=== PATIENT | female | born 1940 | race Caucasian/White ===

== ENCOUNTER 2019-10-06 16:00 | Emergency (ER) | payer MEDICARE, SELFPAY ==
--- NOTE | ~2019-10-06 | XR_ITS ---
EXAMINATION: XR chest 2V EXAM DATE: 10/06/2019 16:29 INDICATION: Generalized chest pain. Weakness. TECHNIQUE: Frontal and lateral projections of the chest obtained and reviewed. Comparison is made to prior examination from 09/08/2021. FINDINGS: Small amount of left basilar atelectasis or pneumonia, new finding compared to prior study. The lungs are otherwise clear. There are no pleural effusions. The cardiomediastinal silhouette is within normal limits. There is no pneumothorax suspected. The bones and soft tissues are unremarka ble. IMPRESSION: Subsegmental left basilar atelectasis or pneumonia. Reviewed, dictated and finalized at location A. END ANCHOR
--- NOTE | 2019-10-06 16:08 | ECG_ITS ---
Measurements Intervals [place] Rate: 79 P: [place]: 0 QRS: 57 QRSD: 93 T: 15 QT: 373 QTc: 428 Interpretive Statements ATRIAL FIBRILLATION DELAYED PRECORDIAL R/S TRANSITION BASELINE ARTIFACT- I, II, III, AVR, AVF ABNORMAL ECG Electronically Signed On 10-06-2019 16:20:58 [employer] by Kaushik Torres D.O.
[2019-10-06 16:10] VITALS: BP 137/85; PULSE 76; RESP 18; TEMP 37; O2SAT 96
[2019-10-06 16:40] LABS: Hematocrit 36.9 % (35.0-42.0); Hemoglobin 12.2 g/dL (11.7-13.8); Mean Corpuscular HGB Conc 33.1 g/dL (32.0-36.0); Mean Corpuscular Volume 90.9 fL (78.0-102.0); Mean Platelet Volume 9.4 fl (9.2-11.8); Platelet Count Result 281 K/mm3 (150-420); Red Blood Count 4.06 M/mm3 (4.20-5.40); Red Cell Distribution Width 13.4 % (11.6-14.4); White Blood Count 5.8 K/mm3 (4.8-10.8)
[2019-10-06 16:54] LABS: INR 1.1; Partial Thromboplastin Time 28.2 SEC (22.3-31.6); Prothrombin Time 11.2 Seconds (9.64-11.0)
[2019-10-06 16:59] LABS: Alanine Aminotransferase 24 U/L (14-59); Albumin Level 3.4 g/dL (3.4-5.0); Alkaline Phosphatase 52 U/L (46-116); Aspartate Amino Transferase 23 U/L (15-37); Bilirubin,Total 0.3 mg/dL (0.00-1.00); Blood Urea Nitrogen 21 mg/dL (7-18); Calcium 9.4 mg/dL (8.5-10.1); Carbon Dioxide 27 mmol/L (21-32); Chloride 102 mmol/L (98-108); Estimated Glomerular Filt Rate 40; Glucose 95 mg/dL (70-99); Osmolality Calculated 293 mOsm/kg (285-295); Sodium 140 mmol/L (136-145); Total Protein 7.8 g/dL (6.4-8.2)
[2019-10-06 17:00] LABS: Troponin I < 0.02 ng/mL (0.00-0.056)
[2019-10-06 17:18] LABS: Band Neutrophils Percent 0 % (0-6); Basophils Percent Manual 0 % (0-1); Eosinophils Percent Manual 0 % (1-6); Lymphocytes Absolute Manual 2.32 K/mm3 (1.1-4.5); Lymphocytes Percent Manual 40 % (18-44); Metamyelocytes Percent 0 %; Monocytes Absolute Manual 0.34 K/mm3 (0.1-0.90); Monocytes Percent Manual 6 % (3-9); Myelocytes Percent 0 %; Neutrophils Absolute Manual 3.13 K/mm3 (1.7-7.2); Neutrophils Percent Manual 54 % (46-73); Total Cells Counted 100
[2019-10-06] MEDS: SODIUM CHLORIDE 0.9% IV 1,000 ML 999 ML IV CONT (17:28)
[2019-10-06 17:50] LABS: Lactic Acid 1.6 mmol/L (0.4-2.0)
[2019-10-06 17:58] LABS: Add Urine Microscopic? NO; Appearance Urine Clear (Clear); Bilirubin Urine Negative (Negative); Blood Urine Negative (Negative); Color Urine Yellow (Yellow); Glucose Urine UA Negative (Negative); Ketones Urine Negative (Negative); Leukocyte Esterase Ur Negative (Negative); Nitrate Urine Negative (Negative); Protein Urine Negative (Negative); Urobilinogen Urine 0.2 mg/dL (0.2-1.0)
[2019-10-06 18:04] VITALS: BP 170/91; PULSE 81; RESP 18; O2SAT 98
--- NOTE | 2019-10-06 18:16 | ED.SOB ---
HPI - SOB/Dyspnea General Chief Complaint: Shortness of Breath/Dyspnea Stated Complaint: weakness, sent from [facility] Source: patient and family Mode of arrival: ambulatory Limitations: no limitations History of Present Illness HPI Narrative: 79-year-old female sent to the ER by her primary care physician because of fall she stated that she was having chest pain, during evaluation of the patient she denied any chest pain and was complaining of a cough and some rattling in her upper airway, other cough is nonproductive and currently on she recently finished a course of antibiotics for pneumonia approximately 2 weeks ago. Currently there is no fever chills no nausea vomiting no chest pain or chest tightness no shortness of breath no abdominal pain no diarrhea constipation. MD elicited complaint: cough Onset (ago): day(s) Context: recent illness Timing: intermittent Severity: mild Exacerbating factors: coughing Relieving factors: bronchodilators Related Data Home Medications Medication Instructions Recorded Confirmed albuterol sulfate [ProAir HFA] 2 puff INHALATION Q6H 10/06/19 10/06/19 alprazolam [Xanax] 0.25 mg PO HS PRN 10/06/19 10/06/19 amlodipine 2.5 mg PO DAILY 10/06/19 10/06/19 apixaban [Eliquis] 5 mg PO DAILY 10/06/19 10/06/19 aspirin [Aspir-81] 81 mg PO DAILY 10/06/19 10/06/19 levothyroxine [Synthroid] 100 mcg PO DAILY 10/06/19 10/06/19 losartan 100 mg PO DAILY 10/06/19 10/06/19 paroxetine HCl 30 mg PO QAM 10/06/19 10/06/19 pravastatin 20 mg PO DAILY 10/06/19 10/06/19 Allergies Allergy/AdvReac Type Severity Reaction Status Date / Time hydrocodone Allergy Unknown Verified 04/23/17 06:54 Influenza Virus Vaccines Allergy Unknown Itching Verified 04/23/17 06:54 meperidine Allergy Unknown Nausea and Verified 04/23/17 06:54 Vomiting naproxen Allergy Unknown Verified 07/24/14 09:43 Penicillins Allergy Unknown Verified 07/24/14 09:43 vancomycin Allergy Unknown Verified 07/24/14 09:43 NKFA Allergy Unknown Uncoded 02/21/03 13:44 NONSTEROIDAL Allergy Unknown Rash Uncoded 12/13/08 13:03 Review of Systems Review of Systems: All systems reviewed & are unremarkable except as noted in HPI and below PMFSH Past Medical History Medical History Afib HTN (hypertension) Hypothyroidism (acquired) Family History Family History Father Family history of malignant neoplasm Other Asthma Social History Social History Smoking status: Never smoker Alcohol intake: never Exam Const: General: no acute distress and alert Orientation/consciousness: patient oriented x3 HENMT: Head: normal to inspection Neck: Neck: normal visual inspection and no lymphadenopathy Chest: Chest palpation & inspection: normal inspection of the chest Resp: Effort & Inspection: normal respiratory effort Auscultation: clear to auscultation bilaterally Cardio: Rate: regular rate GI: GI Palp: Yes Soft to palpation : General: Yes no CVA tenderness Back/Spine/Pelvis: Back: no CVA tenderness Course Vital Signs Vital signs: Vital Signs Temperature 37.0 C 10/06/19 16:10 Pulse Rate 76 10/06/19 16:10 Respiratory Rate 18 10/06/19 16:10 Blood Pressure 137/85 10/06/19 16:10 Pulse Oximetry 96 10/06/19 16:10 Temperature 37.0 C 10/06/19 16:10 Pulse Rate 81 10/06/19 18:04 Respiratory Rate 18 10/06/19 18:04 Blood Pressure 170/91 H 10/06/19 18:04 Pulse Oximetry 98 10/06/19 18:04 MDM - SOB/Dyspnea Lab Data Attestation: I reviewed the patient's lab results. Result diagrams: 10/06/19 16:34 10/06/19 16:34 Labs: Lab Results 10/06/19 10/06/19 10/06/19 Range/Units 16:34 16:34 16:34 WBC 5.8 (4.8-10.8) K/mm3 RBC 4.06 L (4.20-5.40) M/mm3 Hgb 12.2 (11.7-13.8) g/dL Hct 36.9 (35.0-42.0)
[2019-10-06 18:29] VITALS: BP 158/93
[2019-10-06 18:48] LABS: Platelet Estimate Adequate (Adequate)
== END 2019-10-06 18:37 | disposition home or self-care (01) ==
PROVIDERS: Emergency Provider Emergency Medicine; PCP Internal Medicine
DX: J18.9 Pneumonia, unspecified organism (principal); I48.91 Unspecified atrial fibrillation; I10 Essential (primary) hypertension; E03.9 Hypothyroidism, unspecified
CPT/HCPCS: 36415; 71046; 80053; 81003; 83605; 84484; 85025; 85610; 85730; 93005; 96360; 99284; J7030

== ENCOUNTER 2019-10-19 12:14 | Outpatient (CLI) | payer MEDICARE, SELFPAY ==
--- NOTE | ~2019-10-19 | XR_ITS ---
EXAMINATION: XR chest 2V 10/19/2019 12:33 INDICATION: Follow-up pneumonia PROCEDURE: 2 view chest COMPARISON: 12/14/2018 FINDINGS: The lungs are clear. The cardiomediastinal silhouette is within normal limits. There are no pleural effusions. There is no pneumothorax suspected. IMPRESSION: 1: NO ACUTE CARDIOPULMONARY DISEASE. Reviewed, dictated and finalized at location A. [employer]
== END 2019-10-19 12:15 | disposition home or self-care (01) ==
PROVIDERS: PCP Internal Medicine; Visit Provider Internal Medicine
DX: J18.9 Pneumonia, unspecified organism (principal)
CPT/HCPCS: 71046

== ENCOUNTER 2019-11-13 16:52 | Emergency (ER) | payer MEDICARE, SELFPAY ==
[2019-11-13 17:00] VITALS: BP 153/90; PULSE 89; RESP 12; TEMP 36.9; O2SAT 97
--- NOTE | 2019-11-13 17:55 | ECG_ITS ---
Measurements Intervals [place] Rate: 83 P: MD: 0 QRS: 5 QRSD: 91 T: 12 QT: 384 QTc: 451 Interpretive Statements ATRIAL FIBRILLATION CONSIDER INFERIOR INFARCT, AGE INDETERMINATE BORDERLINE ST-T WAVE ABNORMALITY- INF/LAT LEADS BASELINE ARTIFACT- I, II, III, AVR, AVL,A VF ABNORMAL ECG Electronically Signed On 11-14-2019 7:36:21 CDT by Kaushik Torers D.O.
--- NOTE | 2019-11-13 17:58 | ED.DIZZY ---
HPI - Dizziness General Chief Complaint: Dizziness Stated Complaint: Dizziness Source: patient Mode of arrival: ambulatory Limitations: no limitations History of Present Illness HPI Narrative: Several hours before arriving in the E.D. Romana Kendall began experiencing spinning when she stood up from a her kitchen chair. She had an unsteady gait leaning towards her left. Her symptoms resolved immediately after sitting down. This recurred every time she stood. There were no symptoms assoc. with sitting or laying or sitting up after laying supine. She's concerned about a possible stroke. She states these are the same symptoms she had in November 2018 when she was dx. with a stroke. Symptoms lasted a day or two She denies tinnitus, change in hearing, ear pain, sweats, nausea, palpitations, chest pain, visual disturbances, speech problems, numbness or weakness. She has been complaint with taking her apixaban. . Related Data Home Medications Medication Instructions Recorded Confirmed alprazolam [Xanax] 0.25 mg PO HS PRN 10/06/19 11/13/19 amlodipine 2.5 mg PO DAILY 10/06/19 11/13/19 apixaban [Eliquis] 5 mg PO DAILY 10/06/19 11/13/19 aspirin [Aspir-81] 81 mg PO DAILY 10/06/19 11/13/19 levothyroxine [Synthroid] 100 mcg PO DAILY 10/06/19 11/13/19 losartan 100 mg PO DAILY 10/06/19 11/13/19 paroxetine HCl 30 mg PO QAM 10/06/19 11/13/19 pravastatin 20 mg PO DAILY 10/06/19 11/13/19 cholecalciferol (vitamin D3) 1,000 unit PO DAILY 11/13/19 11/13/19 mecobalamin (vitamin B12) 1,000 mcg PO DAILY 11/13/19 11/13/19 Allergies Allergy/AdvReac Type Severity Reaction Status Date / Time hydrocodone Allergy Unknown Rash Verified 11/13/19 17:26 Influenza Virus Vaccines Allergy Unknown Itching Verified 04/23/17 06:54 meperidine Allergy Unknown Nausea and Verified 04/23/17 06:54 Vomiting naproxen Allergy Unknown Rash Verified 11/13/19 17:26 Penicillins Allergy Unknown Rash Verified 11/13/19 17:26 vancomycin Allergy Unknown Rash Verified 11/13/19 17:26 Review of Systems Constitutional: Constitutional: Reports no additional constitutional complaints, Denies chills and Denies fever(s) Eyes: Eyes: Reports no additional eye complaints ENT: Denies dysphagia and Denies nasal congestion Cardiovascular: Cardiovascular: Denies rapid heart rate, Denies radiating jaw, neck or arm pain and Denies slow heart rate Respiratory: Respiratory: Denies dyspnea Gastrointestinal: Gastrointestinal: Denies abdominal pain, Denies diarrhea and Denies vomiting Genitourinary: Genitourinary: Denies dysuria Musculoskeletal: Musculoskeletal: Denies back pain and Denies arthralgias Integumentary/Breasts: Skin/Breast: Denies rash Neurologic: Reports system reviewed and no additional complaints, except as documented and Denies syncope Psychiatric: Comments: Chronic anxiety and depression, no recent change. Endocrine: Endocrine: Reports polyuria Comments: chronic Hematologic/Lymphatic: Hematologic/Lymphatic: Denies easy bruising PMFSH Past Medical History Medical History Afib HTN (hypertension) Hypothyroidism (acquired) Family History Family History Father Family history of malignant neoplasm Other Asthma Social History Social History (Updated 11/13/19 @ 18:06 by Jimbo Jackson MD) Smoking status: Former smoker Alcohol intake: never Gender identity (if verbalized by the patient): Female Exam Const: Orientation/consciousness: patient oriented x3 Other: somewhat anxious. HENMT: Head: normal to inspection and no hematomas Ears: TM's normal bilaterally, EAC's normal, no external ear abnormalities and other (Sabi-Hallpike maneuver - negative. ) General nose exam: no nasal discharge noted Face and sinus: no sinus tenderness Mouth: No moist mucous membranes Other: Hears normal voice volume equally well both ears. Eyes: Pupils:
[2019-11-13 18:10] VITALS: BP 157/82; PULSE 74
--- NOTE | 2019-11-13 18:10 | PC.NURSE ---
Pt denies sx during orthostatic VS.
[2019-11-13 18:12] LABS: Basophils Absolute Auto 0.02 K/mm3 (0.00-0.10); Basophils Percent Auto 0.3 % (0.0-1.0); Eosinophils Percent Auto 1.7 % (1.0-6.0); Hematocrit 37.1 % (35.0-42.0); Hemoglobin 12.4 g/dL (11.7-13.8); Immature Granulocyte Absolute 0.02 K/mm3 (0.00-0.00); Immature Granulocyte Percent A 0.3 % (0.0-0.0); Lymphocytes Absolute Auto 1.62 K/mm3 (1.10-4.50); Lymphocytes Percent Auto 26.9 % (18.0-42.0); Mean Corpuscular HGB Conc 33.4 g/dL (32.0-36.0); Mean Corpuscular Hemoglobin 30.5 pg (27.0-31.0); Mean Corpuscular Volume 91.2 fL (78.0-102.0); Mean Platelet Volume 10.1 fl (9.2-11.8); Monocytes Absolute Auto 0.47 K/mm3 (0.10-0.90); Monocytes Percent Auto 7.8 % (2.0-11.0); Neutrophils Absolute Auto 3.8 K/mm3 (1.7-7.2); Platelet Count Result 259 K/mm3 (150-420); Red Blood Count 4.07 M/mm3 (4.20-5.40)
[2019-11-13] MEDS: SODIUM CHLORIDE 0.9% IV 500 ML 999 ML IV CONT (18:15)
[2019-11-13 18:19] LABS: Anion Gap 11.9 mmol/L (7-16); Blood Urea Nitrogen 20 mg/dL (7-18); Calcium 9.1 mg/dL (8.5-10.1); Carbon Dioxide 28 mmol/L (21-32); Chloride 106 mmol/L (98-108); Estimated CRCL calculation 31 ml/min; Estimated Glomerular Filt Rate 44; Glucose 92 mg/dL (70-99); Magnesium 1.9 mg/dL (1.8-2.4); Osmolality Calculated 296 mOsm/kg (285-295); Potassium 3.9 mmol/L (3.5-5.1); Sodium 142 mmol/L (136-145)
[2019-11-13 18:21] VITALS: BP 141/84; BP 145/80; PULSE 83; PULSE 93
[2019-11-13 19:03] LABS: Add Urine Microscopic? NO; Appearance Urine Clear (Clear); Bilirubin Urine Negative (Negative); Blood Urine Negative (Negative); Color Urine Yellow (Yellow); Glucose Urine UA Negative (Negative); Ketones Urine Negative (Negative); Leukocyte Esterase Ur Negative (Negative); Nitrate Urine Negative (Negative); Protein Urine Negative (Negative); Urobilinogen Urine 0.2 mg/dL (0.2-1.0)
--- NOTE | 2019-11-13 19:21 | PC.NURSE ---
Amb in hallway form room to exit and back to room. Pt states she feels much better and would like to go home. Gait is steady, Dr Jackson aware.
[2019-11-13 19:33] VITALS: BP 141/98; PULSE 90; RESP 18; O2SAT 95
== END 2019-11-13 19:34 | disposition home or self-care (01) ==
PROVIDERS: Emergency Provider Family Medicine
DX: R42 Dizziness and giddiness (principal); I48.91 Unspecified atrial fibrillation; I10 Essential (primary) hypertension; E03.9 Hypothyroidism, unspecified
CPT/HCPCS: 36415; 80048; 81003; 83735; 85025; 93005; 96360; 99282; 99283; J7040

== ENCOUNTER 2020-03-06 09:27 | Outpatient (CLI) | payer MEDICARE, SELFPAY | END 2020-03-06 09:28 | disposition home or self-care (01) | PROVIDERS: PCP Internal Medicine; Visit Provider Specialist | DX: C44.319 Basal cell carcinoma of skin of other parts of face (principal) | CPT/HCPCS: 88305 ==

== ENCOUNTER 2020-03-18 12:09 | Emergency (ER) | payer MEDICARE, SELFPAY ==
--- NOTE | ~2020-03-18 | XR_ITS ---
EXAMINATION: XR wrist LT min 3V DATE: 03/18/2020 12:36 INDICATION: Left wrist pain TECHNIQUE: Posteroanterior, ulnar deviation, oblique, and lateral views of the left wrist were obtain ed. COMPARISON: None available FINDINGS: There is advanced osteoarthritis at the triscaphe and first carpometacarpal joints. Chondro calcinosis is noted in the triangular fibrocartilage. No fracture is identified, sensitivity is limit ed by osteopenia. There is mild to moderate osteoarthritis at the metacarpophalangeal joints. IMPRESSION: 1. Polyarticular osteoarthritis. Reviewed, dictated and finalized at location A.
[2020-03-18 12:10] VITALS: BP 130/88; PULSE 70; RESP 18; TEMP 36.9
--- NOTE | 2020-03-18 12:40 | ED.EXTPRO ---
HPI - Extremity Problem General Chief complaint: Unspecified Stated complaint: left arm thinks might have broke it Source: patient Mode of arrival: ambulatory Limitations: no limitations History of Present Illness HPI Narrative: 79 y.o. with htn, s/p CVA c/o severe left wrist pain, onset 4-5 hours ago. Pt was awake at 2:30 AM and had no pain. She's never had this before. It's non-radiating. Moving the wrist makes it worse. Biofreeze application did not help with the pain. She has longstanding stiffness her her MCP and PIP joints but no other joint pain and no joint swelling. NO hx of gout. Related Data Home Medications Medication Instructions Recorded Confirmed alprazolam [Xanax] 0.25 mg PO HS PRN 10/06/19 03/18/20 amlodipine 2.5 mg PO DAILY 10/06/19 03/18/20 apixaban [Eliquis] 5 mg PO DAILY 10/06/19 03/18/20 aspirin [Aspir-81] 81 mg PO DAILY 10/06/19 03/18/20 levothyroxine [Synthroid] 100 mcg PO DAILY 10/06/19 03/18/20 losartan 100 mg PO DAILY 10/06/19 03/18/20 paroxetine HCl 30 mg PO QAM 10/06/19 03/18/20 pravastatin 20 mg PO DAILY 10/06/19 03/18/20 cholecalciferol (vitamin D3) 1,000 unit PO DAILY 11/13/19 03/18/20 mecobalamin (vitamin B12) 1,000 mcg PO DAILY 11/13/19 03/18/20 Allergies Allergy/AdvReac Type Severity Reaction Status Date / Time hydrocodone Allergy Unknown Rash Verified 11/13/19 17:26 Influenza Virus Vaccines Allergy Unknown Itching Verified 04/23/17 06:54 meperidine Allergy Unknown Nausea and Verified 04/23/17 06:54 Vomiting naproxen Allergy Unknown Rash Verified 11/13/19 17:26 Penicillins Allergy Unknown Rash Verified 11/13/19 17:26 vancomycin Allergy Unknown Rash Verified 11/13/19 17:26 Review of Systems Constitutional: Constitutional: Denies chills and Denies fever(s) ENT: Denies nasal congestion and Denies sore throat Cardiovascular: Cardiovascular: Denies chest pain Respiratory: Respiratory: Denies dyspnea Gastrointestinal: Gastrointestinal: Denies nausea and Denies vomiting Musculoskeletal: Musculoskeletal: Reports no additional musculoskeletal complaints Hematologic/Lymphatic: Comments: no pedal edema PMFSH Social History Social History (Updated 11/13/19 @ 18:06 by Jimbo Jackson MD) Smoking status: Former smoker Alcohol intake: never Gender identity (if verbalized by the patient): Female Sexual Orientation (if Verbalized by the Patient): Straight or Heterosexual Exam Narrative: Exam Narrative: Appears very uncomfortable, holding left forearm and wrist trying to avoid any movement. HENMT: Head: normal to inspection Skin: General skin exam: normal color Rashes: no rashes Neuro: Speech: normal speech Extrem: Other: left dorsal wrist has minor dorsal swelling without redness or warmth. Able to flex and extend fingers. Enlarged MCP joints, not red or swollen. /eryTender proximal dorsal radius. Any left wrist flexion/extension/supination/pronation is very painful. No mid or prox. forearm tenderness. Full painless elbow ROM. Psych: Mental Status: mental status grossly normal Course Course Emergency Course: Pt not given NSAIDS because of Stage 3bCKD. Explained to pt. I will tx. with topical NSAID. Pharmacy called. They do not have codeine. Pt states she does not recall ever having an allergy to hydrocodone. Rx. [facility] 5/325 sent. Pharmacist will advise pt to stop if she develops a rash. Pt advised not to take ibuprofen because of kidney problems. Vital Signs Vital signs: Vital Signs Temperature 36.9 C 03/18/20 12:10 Pulse Rate 70 03/18/20 12:10 Respiratory Rate 03/18/20 12:10 Blood Pressure 130/88 03/18/20 12:10 Temperature 36.7 C 03/18/20 15:30 Pulse Rate 70 03/18/20 15:30 Respiratory Rate 18 03/18/20 15:30 Blood Pressure 130/72 03/18/20 15:30 Pulse Oximetry 98 03/18/20 15:30 MDM - Extremity (Nontraumatic) MDM Narrative Medical decision making narrative: NO evidence of gouit or septic arthritis. D.c. azam
[2020-03-18] MEDS: IBUPROFEN 400 MG TABLET PO (13:45)
[2020-03-18 13:55] LABS: Basophils Absolute Auto 0.02 K/mm3 (0.00-0.10); Basophils Percent Auto 0.2 % (0.0-1.0); Eosinophils Absolute Auto 0.06 K/mm3 (0.02-0.50); Eosinophils Percent Auto 0.7 % (1.0-6.0); Hematocrit 40.3 % (35.0-42.0); Hemoglobin 13.2 g/dL (11.7-13.8); Immature Granulocyte Absolute 0.03 K/mm3 (0.00-0.00); Immature Granulocyte Percent A 0.4 % (0.0-0.0); Lymphocytes Absolute Auto 1.87 K/mm3 (1.10-4.50); Mean Corpuscular HGB Conc 32.8 g/dL (32.0-36.0); Mean Corpuscular Hemoglobin 30.3 pg (27.0-31.0); Mean Corpuscular Volume 92.4 fL (78.0-102.0); Mean Platelet Volume 10.3 fl (9.2-11.8); Monocytes Absolute Auto 0.57 K/mm3 (0.10-0.90); Monocytes Percent Auto 6.7 % (2.0-11.0); Neutrophils Absolute Auto 5.9 K/mm3 (1.7-7.2); Platelet Count Result 237 K/mm3 (150-420); Red Blood Count 4.36 M/mm3 (4.20-5.40); Red Cell Distribution Width 13.4 % (11.6-14.4); White Blood Count 8.5 K/mm3 (4.8-10.8)
[2020-03-18 14:10] LABS: Alanine Aminotransferase 22 U/L (14-59); Albumin Level 3.8 g/dL (3.4-5.0); Alkaline Phosphatase 72 U/L (46-116); Anion Gap 10.9 mmol/L (7-16); Aspartate Amino Transferase 22 U/L (15-37); Bilirubin,Total 0.6 mg/dL (0.00-1.00); Blood Urea Nitrogen 17 mg/dL (7-18); Carbon Dioxide 29 mmol/L (21-32); Chloride 102 mmol/L (98-108); Estimated CRCL calculation 29 ml/min; Estimated Glomerular Filt Rate 39; Glucose 105 mg/dL (70-99); Osmolality Calculated 287 mOsm/kg (285-295); Potassium 3.9 mmol/L (3.5-5.1); Sodium 138 mmol/L (136-145); Total Protein 7.9 g/dL (6.4-8.2)
[2020-03-18 14:13] LABS: CRP 2.1 mg/dL (0.0-0.9)
--- NOTE | 2020-03-18 14:48 | PC.NURSE ---
son here, upset at legnth of time taking MD to assess patient
[2020-03-18 15:30] VITALS: BP 130/72; PULSE 70; RESP 18; TEMP 36.7; O2SAT 98
[2020-03-20 15:43] LABS: Uric Acid 4.8 mg/dL (2.6-6.0)
== END 2020-03-18 15:32 | disposition home or self-care (01) ==
PROVIDERS: Emergency Provider Family Medicine; PCP Internal Medicine
DX: M19.032 Primary osteoarthritis, left wrist (principal)
CPT/HCPCS: 36415; 73110; 80053; 84550; 85025; 86140; 99283; A4565; A9270

== ENCOUNTER 2020-09-04 14:01 | Outpatient (CLI) | payer MEDICARE, SELFPAY | END 2020-09-04 14:02 | disposition home or self-care (01) | PROVIDERS: PCP Internal Medicine; Visit Provider Specialist | DX: D23.4 Other benign neoplasm of skin of scalp and neck (principal) | CPT/HCPCS: 88305 ==

== ENCOUNTER 2021-07-23 14:43 | Outpatient (CLI) | payer MEDICARE, SELFPAY ==
[2021-07-23 16:20] LABS: Influenza A QL RT-PCR Negative (Negative); Influenza B QL RT-PCR Negative (Negative); SARS-CoV-2 RNA PCR Negative (Negative)
== END 2021-07-23 14:44 | disposition home or self-care (01) ==
LOC: CHSLAB 14:46
PROVIDERS: PCP Internal Medicine; Visit Provider Internal Medicine
DX: J06.9 Acute upper respiratory infection, unspecified (principal); Z20.822 Contact with and (suspected) exposure to COVID-19
CPT/HCPCS: 87502; C9803; U0003; U0005

== ENCOUNTER 2021-07-24 08:31 | Outpatient (CLI) | payer MEDICARE, SELFPAY ==
--- NOTE | ~2021-07-24 | XR_ITS ---
EXAMINATION: XR chest 2V DATE: 07/24/2021 08:48 INDICATION: Cough and wheezing. TECHNIQUE: Frontal and lateral views of the chest were obtained. COMPARISON: Chest 2 views 10/19/2019 FINDINGS: There is mild atelectasis in the lower lung zones. No pleural effusion or pneumothorax. Car diomegaly is noted. There are surgical clips in right neck. IMPRESSION: 1. Mild atelectasis in the lower lung zones. 2. Cardiomegaly. Reviewed, dictated and finalized at location B. [employer]
== END 2021-07-24 08:32 | disposition home or self-care (01) ==
LOC: CHSIMG 08:34
PROVIDERS: PCP Internal Medicine; Visit Provider Internal Medicine
DX: R05.9 Cough, unspecified (principal); R06.2 Wheezing
CPT/HCPCS: 71046

== ENCOUNTER 2022-03-18 18:41 | Emergency (ER) | payer MEDICARE, SELFPAY ==
--- NOTE | ~2022-03-18 | CT_ITS ---
EXAMINATION: CT brain wo con DATE: 03/18/2022 19:23 INDICATION: dizziness X 16 HOURS . TECHNIQUE: Computed tomography (CT) of the head was performed without intravenous contrast. The mA wa s adjusted according to patient size. Iterative reconstruction technique was employed. The dose-lengt h product was 681.00 mGy-cm. COMPARISON: 12/14/2018 FINDINGS: No acute intracranial hemorrhage or extra-axial fluid collection. No hydrocephalus, mass, or herniation. No acute ischemic infarct. Unremarkable dural venous sinus attenuation. No acute osseous abnormality. The aerated spaces are clear. Mild atrophy and chronic white matter change. Chronic bilateral basal ganglia lacunar infarctions. At herosclerotic intracranial calcification. Bilateral lens replacements. IMPRESSION: No acute intracranial process. Reviewed, dictated and finalized at location K.
[2022-03-18 18:50] VITALS: BP 183/86; PULSE 88; RESP 16; TEMP 36.1; O2SAT 100
--- NOTE | 2022-03-18 18:55 | ECG_ITS ---
Measurements Intervals [place] Rate: 79 P: [place]: 0 QRS: 12 QRSD: 97 T: 11 QT: 394 QTc: 454 Interpretive Statements ATRIAL FIBRILLATION MINIMAL Q WAVES- INFERIOR LEADS BASELINE ARTIFACT- I, II, III, AVR, AVL, AVF, V3 ABNORMAL ECG Electronically Signed On 03-18-2022 19:36:28 CDT by Kaushik Torres D.O.
--- NOTE | 2022-03-18 18:58 | ED.DIZZY ---
HPI - Dizziness General Chief Complaint: Dizziness Stated Complaint: trouble walking, dizzy History of Present Illness HPI Narrative: Pt presents with dizziness and unsteady gait when she sits up or stands but resolves when she is lying down or still. Pt said her vision was blurry also Pt says it started last night but when she laid down it resolved and she went to bed. Pt was fine most of day today and was up and about without problems and then this afternoon she started having dizziness when she sits up or stands again. Pt says top of head feels funny but denies DEE. Pt denies one sided weaknes, slurred speech or sensory deficits. Pt says she has had many strokes in past. The symptoms were similar to this today. Related Data Home Medications Medication Instructions Recorded Confirmed alprazolam 0.25 mg tablet (Xanax) 0.25 mg PO HS PRN Anxiety 10/06/19 03/18/22 amlodipine 5 mg tablet 2.5 mg PO DAILY 10/06/19 03/18/22 apixaban 5 mg tablet (Eliquis) 5 mg PO DAILY 10/06/19 03/18/22 aspirin 81 mg tablet,delayed 81 mg PO DAILY 10/06/19 03/18/22 release (Aspir-) levothyroxine 100 mcg tablet 100 mcg PO DAILY 10/06/19 03/18/22 (Synthroid) losartan 100 mg tablet 100 mg PO DAILY 10/06/19 03/18/22 paroxetine HCl 30 mg tablet 30 mg PO QAM 10/06/19 03/18/22 pravastatin 20 mg tablet 20 mg PO DAILY 10/06/19 03/18/22 cholecalciferol (vitamin D3) 25 1,000 unit PO DAILY 11/13/19 03/18/22 mcg (1,000 unit) tablet mecobalamin (vitamin B12) 1,000 1,000 mcg PO DAILY 11/13/19 03/18/22 mcg chewable tablet Allergies Allergy/AdvReac Type Severity Reaction Status Date / Time hydrocodone Allergy Unknown Rash Verified 03/18/22 18:59 Influenza Virus Vaccines Allergy Unknown Itching Verified 03/18/22 18:59 meperidine Allergy Unknown Nausea and Verified 03/18/22 18:59 Vomiting naproxen Allergy Unknown Rash Verified 03/18/22 18:59 Penicillins Allergy Unknown Rash Verified 03/18/22 18:59 vancomycin Allergy Unknown Rash Verified 03/18/22 18:59 Review of Systems Review of Systems: All systems reviewed & are unremarkable except as noted in HPI and below PMFSH Past Medical History Medical History (Updated 03/18/22 @ 19:48 by Wes Boggs III, DO) Afib HTN (hypertension) Hypothyroidism (acquired) Family History Family History Father Family history of malignant neoplasm Other Asthma Social History Social History (Updated 11/13/19 @ 18:06 by Jimbo JacksonMD) Smoking status: Former smoker Alcohol intake: never Gender identity (if verbalized by the patient): Female Sexual Orientation (if Verbalized by the Patient): Straight or Heterosexual Exam Const: General: healthy appearing Nutritional Appearance: well nourished Orientation/consciousness: patient oriented x3 Limitations: no limitations HENMT: Head: normal to inspection Ears: TM's normal bilaterally Eyes: Conjunctivae: conjunctivae normal Pupils: Equal, round and reactive pupils present EOM: EOMs intact bilaterally Neck: Neck: normal visual inspection Resp: Effort & Inspection: normal respiratory effort Auscultation: clear to auscultation bilaterally Cardio: Rate: regular rate Rhythm: regular rhythm GI: GI Palp: Yes Soft to palpation Auscultation: normal bowel sounds Skin: General skin exam: normal color Rashes: no rashes Neuro: General: patient oriented x3, moves all extremities, no meningeal signs, no focal motor deficits and CN's II-XI intact bilaterally Cranial nerves: Yes Nystagmus not present Speech: normal speech Other: symptoms reproduced when sitting up and resolve when lying still. Symptoms not reproduced when turning head side to side. Extrem: General: normal to inspection and no clubbing, cyanosis or edema Psych: Mental Status: mental status grossly normal Affect: normal affect Attitude: cooperative Course Vital Signs Vital signs: Vital Signs Tempera
[2022-03-18 19:16] LABS: Basophils Absolute Auto 0.03 K/mm3 (0.00-0.10); Basophils Percent Auto 0.5 % (0.0-1.0); Eosinophils Absolute Auto 0.09 K/mm3 (0.02-0.50); Eosinophils Percent Auto 1.5 % (1.0-6.0); Hematocrit 38.8 % (35.0-42.0); Hemoglobin 12.6 g/dL (11.7-13.8); Immature Granulocyte Absolute 0.01 K/mm3 (0.00-0.00); Immature Granulocyte Percent A 0.2 % (0.0-0.0); Lymphocytes Absolute Auto 2.07 K/mm3 (1.10-4.50); Lymphocytes Percent Auto 34.5 % (18.0-42.0); Mean Corpuscular HGB Conc 32.5 g/dL (32.0-36.0); Mean Corpuscular Hemoglobin 30.1 pg (27.0-31.0); Mean Corpuscular Volume 92.6 fL (78.0-102.0); Mean Platelet Volume 10.2 fl (9.2-11.8); Monocytes Absolute Auto 0.43 K/mm3 (0.10-0.90); Monocytes Percent Auto 7.2 % (2.0-11.0); Neutrophils Absolute Auto 3.4 K/mm3 (1.7-7.2); Neutrophils Percent Auto 56.1 % (50.0-70.0); Platelet Count Result 249 K/mm3 (150-420); Red Blood Count 4.19 M/mm3 (4.20-5.40)
[2022-03-18] MEDS: MECLIZINE HCL 25 MG TABLET PO (19:23)
[2022-03-18 19:26] VITALS: BP 151/119
[2022-03-18 19:30] LABS: Partial Thromboplastin Time 29.1 SEC (23.90-30.70); Prothrombin Time 11.4 Seconds (9.50-12.10)
[2022-03-18 19:32] LABS: Alanine Aminotransferase 17 U/L (14-59); Albumin Level 3.5 g/dL (3.4-5.0); Alkaline Phosphatase 76 U/L (46-116); Anion Gap 10 mmol/L (8-16); Aspartate Amino Transferase 12 U/L (15-37); Bilirubin,Total 0.3 mg/dL (0.00-1.00); Blood Urea Nitrogen 18 mg/dL (7-18); Calcium 9.3 mg/dL (8.5-10.1); Carbon Dioxide 28 mmol/L (21-32); Chloride 104 mmol/L (98-108); Estimated CRCL calculation 27 ml/min; Estimated Glomerular Filt Rate 41; Glucose 150 mg/dL (70-99); Osmolality Calculated 298 mOsm/kg (285-295); Potassium 3.7 mmol/L (3.5-5.1); Sodium 142 mmol/L (136-145); Total Protein 7.3 g/dL (6.4-8.2)
[2022-03-18 19:42] VITALS: BP 173/98; BP 175/79
--- NOTE | 2022-03-18 19:43 | PC.NURSE ---
Pt states was feeling a little dizzy during standing orthostatics, but was able to stand completely still with no movement
== END 2022-03-18 19:57 | disposition home or self-care (01) ==
PROVIDERS: Emergency Provider Emergency Medicine; PCP Internal Medicine
DX: H81.10 Benign paroxysmal vertigo, unspecified ear (principal); I48.91 Unspecified atrial fibrillation; I10 Essential (primary) hypertension; E03.9 Hypothyroidism, unspecified; Z87.891 Personal history of nicotine dependence
CPT/HCPCS: 36415; 70450; 80053; 85025; 85610; 85730; 93005; 99284; A9270

== ENCOUNTER 2022-05-21 13:09 | Emergency (ER) | payer MEDICARE, SELFPAY ==
--- NOTE | ~2022-05-21 | XR_ITS ---
EXAM: XR hand RT min 3V DATE: 05/21/2022 13:49 HISTORY: fall onto hand,5TH DIGIT PAIN,SWELLING THRU DIP . COMPARISON: None available. FINDINGS: Decreased mineralization. No fracture or dislocation. No lytic or blastic lesion. Scattere d arthritic change in the hand and wrist, severe at the third MCP and trapeziometacarpal joint. No er osion or periosteal change. Soft tissues within normal limits. IMPRESSION: No acute osseous finding in the right hand. Reviewed, dictated and finalized at location K.
[2022-05-21 13:41] VITALS: BP 165/96; PULSE 87; RESP 20; TEMP 36.7; O2SAT 95
[2022-05-21] MEDS: ACETAMINOPHEN 325 MG TABLET 650 MG PO (14:15)
--- NOTE | 2022-05-21 14:36 | ED.UPPEXIN ---
HPI - Extremity Injury (Upper) General Chief Complaint: Extremity Injury, Upper Stated Complaint: possible broken finger and ring stuck on finger Time Seen by Provider: 05/21/22 13:11 Source: patient and RN notes reviewed Mode of arrival: ambulatory Limitations: no limitations History of Present Illness complaint: injury to: right and finger Onset (ago): day(s) (1) Other Extremity Injury: Right: fingers Other injuries: none Place: home Severity: moderate Relieving factors: none Exacerbating factors: movement of extremity Associated symptoms: denies other symptoms Related Data Home Medications Medication Instructions Recorded Confirmed alprazolam 0.25 mg tablet (Xanax) 0.25 mg PO HS PRN Anxiety 10/06/19 05/21/22 amlodipine 5 mg tablet 2.5 mg PO DAILY 10/06/19 05/21/22 apixaban 5 mg tablet (Eliquis) 5 mg PO DAILY 10/06/19 05/21/22 aspirin 81 mg tablet,delayed 81 mg PO DAILY 10/06/19 05/21/22 release (Aspir-) levothyroxine 100 mcg tablet 100 mcg PO DAILY 10/06/19 05/21/22 (Synthroid) losartan 100 mg tablet 100 mg PO DAILY 10/06/19 05/21/22 paroxetine HCl 30 mg tablet (Paxil) 30 mg PO QAM 10/06/19 05/21/22 pravastatin 20 mg tablet 20 mg PO HS 10/06/19 05/21/22 cholecalciferol (vitamin D3) 25 1,000 unit PO DAILY 11/13/19 05/21/22 mcg (1,000 unit) tablet mecobalamin (vitamin B12) 1,000 1,000 mcg PO DAILY 11/13/19 05/21/22 mcg chewable tablet Allergies Allergy/AdvReac Type Severity Reaction Status Date / Time hydrocodone Allergy Unknown Rash Verified 03/18/22 18:59 Influenza Virus Vaccines Allergy Unknown Itching Verified 03/18/22 18:59 meperidine Allergy Unknown Nausea and Verified 03/18/22 18:59 Vomiting naproxen Allergy Unknown Rash Verified 03/18/22 18:59 Penicillins Allergy Unknown Rash Verified 03/18/22 18:59 vancomycin Allergy Unknown Rash Verified 03/18/22 18:59 Review of Systems Review of Systems: All systems reviewed & are unremarkable except as noted in HPI and below Constitutional: Constitutional: Reports no additional constitutional complaints Eyes: Eyes: Reports no additional eye complaints ENT: Reports system reviewed and no additional complaints, except as documented Cardiovascular: Cardiovascular: Reports no additional cardiovascular complaints Respiratory: Respiratory: Reports no additional respiratory complaints Gastrointestinal: Gastrointestinal: Reports no additional gastrointestinal complaints Genitourinary: Genitourinary: Reports no additional female genitourinary complaints Musculoskeletal: Musculoskeletal: Reports arthralgias (right 4th finger ring stuck.) Integumentary/Breasts: Skin/Breast: Reports system reviewed and no additional complaints, except as docu Neurologic: Reports system reviewed and no additional complaints, except as documented Psychiatric: Psychiatric: Reports no additional psychiatric complaints Endocrine: Endocrine: Reports no additional endocrine complaints Hematologic/Lymphatic: Hematologic/Lymphatic: Reports no additional hematologic/lymphatic complaints Allergic/Immunologic: Allergic/Immunologic: Reports no additional allergic/immunologic complaints PMFSH Past Medical History Medical History Afib Finger pain, right HTN (hypertension) Hypothyroidism (acquired) Family History Family History Father Family history of malignant neoplasm Other Asthma Social History Social History Smoking status: Former smoker Alcohol intake: never Gender identity (if verbalized by the patient): Female Sexual Orientation (if Verbalized by the Patient): Straight or Heterosexual Exam Const: General: healthy appearing and no acute distress Nutritional Appearance: well nourished Orientation/consciousness: patient oriented x3 Limitations: no limitations HENMT: Head: normal t
[2022-05-21 14:44] VITALS: BP 130/80; PULSE 80; RESP 20; TEMP 36.7; O2SAT 98
== END 2022-05-21 14:47 | disposition home or self-care (01) ==
PROVIDERS: Emergency Provider Emergency Medicine; PCP Internal Medicine
DX: S60.041A Contusion of right ring finger without damage to nail, initial encounter (principal)
CPT/HCPCS: 73130; 99283; A9270

== ENCOUNTER 2023-08-17 10:54 | Outpatient (RCR) | payer MEDICARE, SELFPAY ==
--- NOTE | 2023-08-17 11:52 | OPREHPOC ---
Outpatient Therapy Plan of Care This is a Multidisciplinary Plan of Care that may contain components documented by all disciplines (PT, OT, and ST.) PT Problem 1 PT Problem #1 Knowledge Deficit PT Goal 1 Goal Patient to demonstrate independence with HEP Target Visit 6 PT Problem 2 PT Problem #2 Impaired Strength PT Goal 1 Goal 1. Patient to demonstrate 5/5 B knee strength to improve ability to ambulate prolonged periods 2. Patient to demonstrate 4/5 R ankle strength to improve gait mechanincs Target Visit 12 PT Problem 3 PT Problem #3 Impaired Functional Mobil PT Goal 1 Goal 1. Patient to improve LEFS by 20% 2. Patient to improve Tinetti to moderate fall risk 3. Patient to ambulate 600' during 6 min walk test Target Visit 12
--- NOTE | 2023-08-17 11:53 | PTOPEVAL1 ---
Assessment and note entered by Darya Pimentel DPT Evaluation Information Assessment Status Evaluation Diagnosis R knee pain Onset 08/10/23 Subjective Information Patient reports that she had a stroke in 2020 and since has had L LE pain and weakness since. She reports she does not have pain often. She reports that she has weakness and difficulty with balance. She reports she uses a cane out in the community but not at home. She reports she has had a few falls but none in the recent months. She reports she is able to complete all of her daily chores but has to take many breaks. Reported Pain Level Pain Score 0: Self Report Assessment PT Clinical Summary Patient is a 83 year old female who presents to PT with R LE weakness and occasional R knee pain. Patient demonstrates decreased R LE strength, impaired gait mechanics and decreased balance impairing her ability to complete house hold tasks and ambulate prolonged distances. She would benefit from skilled PT to address impairments and return to PLOF. Plan of Care Interventions Electrical Stimulation,Gait Training,Hot Pack/Cold Pack,Manual Therapy,Neuro Re-education,Patient/ Caregiver Educati,Therapeutic Activities, Therapeutic Exercise PT Services Indicated Yes Treatment Frequency and 2x weekly for 12 visits Duration These treatments will address the objective and functional deficits as defined above. The patient will be advanced safely and appropriately in order for the patient to progress towards his/her prior level of function. Additional exercises will be introduced and as well as a comprehensive home exercise program upon discharge, if needed, ?to ensure carryover of functional gains achieved in the clinic. This treatment plan has been reviewed and agreement upon by the patient.
== END 2023-08-17 13:45 | disposition home or self-care (01) ==
LOC: CHSPT 10:54
PROVIDERS: PCP Internal Medicine; Visit Provider Internal Medicine
DX: M25.561 Pain in right knee (principal)
CPT/HCPCS: 97110; 97161

== ENCOUNTER 2023-08-18 07:47 | Observation (INO) | payer MEDICARE, SELFPAY ==
[2023-08-18] VITALS (17 sets, daily range): BP systolic 144–169; BP diastolic 66–96; PULSE 66–89; RESP 16; TEMP 36.2–36.8; O2SAT 92–98; BMI 26.6
--- NOTE | ~2023-08-18 | XR_ITS ---
EXAMINATION: XR hip RT min 3V w AP pelvis INDICATION: Right hip pain TECHNIQUE: AP view the pelvis and two views of the right hip are obtained. COMPARISON: 07/24/2014 FINDINGS: Bone alignment is normal. There is no fracture. There is mild osteoarthritis of the right h ip. Changes of left hip arthroplasty are noted. IMPRESSION: 1. No acute osseous abnormality. Reviewed, dictated and finalized at location L. RUMENT PANEL ASSEMBLER
--- NOTE | 2023-08-18 08:05 | ED.GENADULT ---
HPI - General Adult General Chief complaint: Extremity Problem,Nontraumatic Stated complaint: leg pain Time Seen by Provider: 08/18/23 07:55 History of Present Illness HPI narrative: This is an 83-year-old female with history of CVA presenting with right leg pain. Patient has had worsening right lower extremity weakness over the last several weeks. Her primary care physician had prescribed her physical rehabilitation. She went to her first rehab yesterday and performed multiple hip strengthening exercises. She then woke up at 2:00 a.m. this morning with pain in her right thigh. It is an achy pain, worse with movement. It has made very difficult for to get around. Patient lives at home by herself has limited family in the area. She took 2 Tylenol for pain. Related Data Home Medications Medication Instructions Recorded Confirmed alprazolam 0.25 mg tablet (Xanax) 0.25 mg PO HS PRN Anxiety 10/06/19 08/18/23 amlodipine 5 mg tablet 2.5 mg PO DAILY 10/06/19 08/18/23 apixaban 5 mg tablet (Eliquis) 5 mg PO DAILY 10/06/19 08/18/23 aspirin 81 mg tablet,delayed 81 mg PO DAILY 10/06/19 08/18/23 release (Aspir-) levothyroxine 100 mcg tablet 100 mcg PO DAILY 10/06/19 08/18/23 (Synthroid) losartan 100 mg tablet 100 mg PO DAILY 10/06/19 08/18/23 paroxetine HCl 30 mg tablet (Paxil) 30 mg PO QAM 10/06/19 08/18/23 pravastatin 20 mg tablet 20 mg PO HS 10/06/19 08/18/23 cholecalciferol (vitamin D3) 25 1,000 unit PO DAILY 11/13/19 08/18/23 mcg (1,000 unit) tablet mecobalamin (vitamin B12) 1,000 1,000 mcg PO DAILY 11/13/19 08/18/23 mcg chewable tablet Allergies Allergy/AdvReac Type Severity Reaction Status Date / Time hydrocodone Allergy Unknown Rash Verified 08/18/23 07:56 Influenza Virus Vaccines Allergy Unknown Itching Verified 08/18/23 07:56 meperidine Allergy Unknown Nausea and Verified 08/18/23 07:56 Vomiting naproxen Allergy Unknown Rash Verified 08/18/23 07:56 Penicillins Allergy Unknown Rash Verified 08/18/23 07:56 vancomycin Allergy Unknown Rash Verified 08/18/23 07:56 PMF Past Medical History Medical History Afib Finger pain, right HTN (hypertension) Hypothyroidism (acquired) Family History Family History Father Family history of malignant neoplasm Other Asthma Social History Social History Smoking status: Former smoker Alcohol intake: never Gender identity (if verbalized by the patient): Female Sexual Orientation (if Verbalized by the Patient): Straight or Heterosexual Exam Narrative: APPEARANCE: No apparent distress. Head: atraumatic. EYES: EOMI, NOSE: Atraumatic NECK: Trachea midline RESPIRATORY: No increased rate of breathing CARDIOVASCULAR: RRR, ABDOMINAL: Non-distended MUSCULOSKELETAl: No obvious deformities, Tenderness to palpation over the lateral thigh muscles. Pain with back passive and active range of motion. No overlying skin changes. Compartments are soft. Pulses are +2. NEURO: Alert. Moving 4/4 extremities SKIN:: Warm, dry. Normal color PSYCHIATRIC: Normal affect Course Vital Signs Vital signs: Vital Signs Temperature 97.1 F L 08/18/23 07:47 Pulse Rate 72 08/18/23 07:47 Respiratory Rate 16 08/18/23 07:47 Blood Pressure 161/89 H 08/18/23 07:47 Pulse Oximetry 98 08/18/23 07:47 Oxygen Delivery Room Air 08/18/23 07:47 Temperature 97.1 F L 08/18/23 07:47 Pulse Rate 72 08/18/23 07:47 Respiratory Rate 16 08/18/23 07:47 Blood Pressure 161/89 H 08/18/23 07:47 Pulse Oximetry 98 08/18/23 07:47 Oxygen Delivery Room Air 08/18/23 07:47 Medical Decision Making MDM Narrative Medical decision making narrative: -Course: 83-year-old female presenting with atraumatic right leg pain following her 1st physical rehabilitation session. Patient has pain and tenderne
--- NOTE | 2023-08-18 08:07 | PC.NURSE ---
Patient taken down to radiology
--- NOTE | 2023-08-18 08:18 | PC.NURSE ---
Patient back in room from radiology.
[2023-08-18] MEDS: LIDOCAINE 5% PATCH 1 PATCH TRANSDERM ×2 (08:22→17:04)
[2023-08-18] MEDS: oxyCODONE HCL (*CRX) 5 MG TAB IR PO (08:22)
[2023-08-18] MEDS: methocarbamoL 750 MG TABLET PO (08:23)
[2023-08-18 08:43] LABS: Basophils Absolute Auto 0.02 K/mm3 (0.00-0.10); Basophils Percent Auto 0.2 % (0.0-1.0); Eosinophils Absolute Auto 0.05 K/mm3 (0.02-0.50); Eosinophils Percent Auto 0.5 % (1.0-6.0); Hematocrit 36.6 % (35.0-42.0); Hemoglobin 11.9 g/dL (11.7-13.8); Immature Granulocyte Absolute 0.03 K/mm3 (0.00-0.00); Immature Granulocyte Percent A 0.3 % (0.0-0.0); Lymphocytes Absolute Auto 1.09 K/mm3 (1.10-4.50); Lymphocytes Percent Auto 11.1 % (18.0-42.0); Mean Corpuscular HGB Conc 32.5 g/dL (32.0-36.0); Mean Corpuscular Hemoglobin 30.4 pg (27.0-31.0); Mean Corpuscular Volume 93.4 fL (78.0-102.0); Mean Platelet Volume 9.8 fl (9.2-11.8); Monocytes Absolute Auto 0.53 K/mm3 (0.10-0.90); Monocytes Percent Auto 5.4 % (2.0-11.0); Neutrophils Absolute Auto 8.1 K/mm3 (1.7-7.2); Neutrophils Percent Auto 82.5 % (50.0-70.0); Platelet Count Result 226 K/mm3 (150-420); Red Blood Count 3.92 M/mm3 (4.20-5.40); Red Cell Distribution Width 13.4 % (11.6-14.4); White Blood Count 9.8 K/mm3 (4.8-10.8)
[2023-08-18 08:57] LABS: Anion Gap 7 mmol/L (8-16); Blood Urea Nitrogen 26 mg/dL (7-18); Calcium 9.3 mg/dL (8.5-10.1); Carbon Dioxide 29 mmol/L (21-32); Chloride 102 mmol/L (98-108); Creatine Kinase 62 U/L (26-192); Estimated CRCL calculation 38 ml/min; Estimated Glomerular Filt Rate 34; Glucose 139 mg/dL (70-99); Osmolality Calculated 292 mOsm/kg (285-295); Potassium 3.9 mmol/L (3.5-5.1); Sodium 138 mmol/L (136-145)
--- NOTE | 2023-08-18 09:15 | PC.NURSE ---
Per EPR request 45 minutes after medication administration patient attempted to ambulate. Patient was able to get up on the side of the bed and stand with RN and Tech assistance. Patient states she is not able to walk due to pain.
--- NOTE | 2023-08-18 09:55 | PC.NURSE ---
Patient arrived on unit from ED via stretcher. Patient able to pivot transfer with assist of 2 from stretcher to bed. Patient has a bag of personal clothing, house slippers and her glasses. Hearing aids and cell phone were left at home. Patient educated on use of call light, bed controls, visiting hours, rapid response system and standard infection control precautions. Patient voiced understanding. Patient answered Yes to several questions on the [place] screening. PHYSICAL THERAPY TEACHER made aware, and patient is currently taking an antidepressant for those symptoms.
--- NOTE | 2023-08-18 10:49 | PM.IMHP ---
[facility] Past Medical History Medical History Afib Finger pain, right HTN (hypertension) Hypothyroidism (acquired) Family History Family History Father Family history of malignant neoplasm Other Asthma Social History Social History Smoking packs per day: 0.25 Smoking cigarettes per day: 5.0 Years smoked: 15 Smoking pack-years: 3.75 Smoking status: Former smoker Tobacco type: cigarettes Second hand tobacco smoke exposure: Yes Smoking end date: 08/18/73 Alcohol intake: never Substance use: never Do You Feel Safe in your Home?: Yes Lack of Transportation: No Lack of Food: Never True Current Housing: I Have Housing Concerned About Future Housing: No Difficulty Paying Gas/Electric Bills: No Difficulty Paying for Meds: No Currently Unemployed: No Education: High School Diploma/GED Difficulty w/ Childcare or Family Care: No Gender identity (if verbalized by the patient): Female Sexual Orientation (if Verbalized by the Patient): Straight or Heterosexual Spiritual care concerns: No Meds Home Medications and Allergies Home Medications Medication Instructions Recorded Confirmed Type alprazolam 0.25 mg tablet (Xanax) 0.25 mg PO HS PRN Anxiety 10/06/19 08/18/23 History amlodipine 5 mg tablet 2.5 mg PO DAILY 10/06/19 08/18/23 History apixaban 5 mg tablet (Eliquis) 5 mg PO BID 10/06/19 08/18/23 History aspirin 81 mg tablet,delayed 81 mg PO DAILY 10/06/19 08/18/23 History release (Aspir-) levothyroxine 100 mcg tablet 100 mcg PO DAILY 10/06/19 08/18/23 History (Synthroid) losartan 100 mg tablet 100 mg PO DAILY 10/06/19 08/18/23 History paroxetine HCl 30 mg tablet (Paxil) 30 mg PO QAM 10/06/19 08/18/23 History pravastatin 20 mg tablet 20 mg PO HS 10/06/19 08/18/23 History cholecalciferol (vitamin D3) 25 1,000 unit PO DAILY 11/13/19 08/18/23 History mcg (1,000 unit) tablet mecobalamin (vitamin B12) 1,000 1,000 mcg PO DAILY 11/13/19 08/18/23 History mcg chewable tablet Allergies Allergy/AdvReac Type Severity Reaction Status Date / Time hydrocodone Allergy Unknown Rash Verified 08/18/23 07:56 Influenza Virus Vaccines Allergy Unknown Itching Verified 08/18/23 07:56 meperidine Allergy Unknown Nausea and Verified 08/18/23 07:56 Vomiting naproxen Allergy Unknown Rash Verified 08/18/23 07:56 Penicillins Allergy Unknown Rash Verified 08/18/23 07:56 vancomycin Allergy Unknown Rash Verified 08/18/23 07:56 Vital Signs Vital Signs - 24 hr 08/18/23 07:47 08/18/23 09:45 08/18/23 08:22 Temperature 36.2 C L 36.6 C Pulse Rate 72 89 Respiratory Rate 16 16 Blood Pressure 161/89 H 156/96 H Pulse Oximetry 98 96 95 Oxygen Delivery Room Air Room Air 08/18/23 08:23 08/18/23 08:30 08/18/23 08:31 Temperature Pulse Rate 74 69 Respiratory Rate Blood Pressure 144/93 H 156/89 H Pulse Oximetry 97 96 97 Oxygen Delivery 08/18/23 08:45 08/18/23 09:00 08/18/23 09:01 Temperature Pulse Rate 72 Respiratory Rate Blood Pressure 154/90 H Pulse Oximetry 93 92 94 Oxygen Delivery 08/18/23 09:15 08/18/23 09:30 08/18/23 09:31 Temperature Pulse Rate 68 Respiratory Rate Blood Pressure 148/70 H Pulse Oximetry 94 96 93 Oxygen Delivery 08/18/23 09:55 Temperature 36.6 C Pulse Rate 74 Respiratory Rate 16 Blood Pressure 168/78 H Pulse Oximetry 96 Oxygen Delivery Room Air H&P: Results Labs Labs: Short CBC 08/18/23 Range/Units 08:39 WBC 9.8 (4.8-10.8) K/mm3 Hgb 11.9 (11.7-13.8) g/dL Hct 36.6 (35.0-42.0) % Plt Count 226 (150-420) K/mm3 BMP 08/18/23 08:39 Sodium 138 Potassium 3.9 Chloride 102 Carbon Dioxide 29 BUN 26 H Creatinine 1.45 H Glucose 139 H Calcium 9.3 Cardiac Enzymes 08/18/23 Range/Units 08:39 Total
--- NOTE | 2023-08-18 11:08 | PM.IMHP ---
H&P: HPI History of Present Illness Date/Time: 08/18/23 11:08 Chief Complaint: Right Nontraumatic Hip Pain Narrative: Romana is an 83-year-old female with history of CVA with right-sided weakness many years ago (A Fib on Eliquis) presenting with atraumatic right leg pain, shooting right hip pain worse with moving or lifting her right leg.? Patient has had worsening right lower extremity weakness over the last several weeks so she was to start outpatient rehab.? Her primary care physician had prescribed her outpatient physical rehabilitation.? She went to her 1st? physical rehabilitation session.? yesterday and performed multiple hip strengthening exercises.? She then woke up at 2:00 a.m. this morning with pain in her right thigh.?She arrived via EMS. It is an achy shooting pain, worse with movement.? She tried to relieve the pain by taking 2 Tylenol at home but was still unable to walk. It has made very difficult for her to get around or drive, unable to complete ADLs, or care for herself at home independently as was her baseline.? Patient lives at home by herself has limited/no family in the area.?She has no one that can stay with her or stop in to check on her. She has no obvious deformities. She is alert and moving all 4 extremities. ?Tenderness with palpation over her right hip lateral thigh muscles.? Also right hip pain with passive and active range of motion.? No overlying skin changes.? Compartments are soft.? Pulses are +2. Skin pink and capillary refill appropriate. Patient has pain and tenderness that correlate with the muscles they were attempting to strengthen. In ED, patient was given muscle relaxers?and pain control ( 750 mg Robaxin, 5 mg oxycodone, lidocaine patch). Xray without fractures. ?Then patient was re-evaluated and she was able to stand but not able to ambulate.? She lives alone, no family or social support at home.?Patient lives alone, poor social support in the area. Patient will be admitted for PT/OT and possible placement. She was admitted as OBSERVATION with Differential Dx: Muscle strain, muscle spasm, occult fracture, ?DVT, debility, Adult failure to thrive. Will have PT and OT evaluate and Treat. electroplating worker / Case management can assist to provide resources. Review of Systems Musculoskeletal: Musculoskeletal: Reports as per HPI, Denies back pain, Denies myalgias, Reports arthralgias (pain over right lateral hip with any movement), Denies joint swelling, Denies neck pain and Denies stiffness PMFSH Past Medical History Medical History Afib Finger pain, right HTN (hypertension) Hypothyroidism (acquired) Family History Family History Father Family history of malignant neoplasm Other Asthma Social History Social History Smoking packs per day: 0.25 Smoking cigarettes per day: 5.0 Years smoked: 15 Smoking pack-years: 3.75 Smoking status: Former smoker Tobacco type: cigarettes Second hand tobacco smoke exposure: Yes Smoking end date: 08/18/73 Alcohol intake: never Substance use: never Do You Feel Safe in your Home?: Yes Lack of Transportation: No Lack of Food: Never True Current Housing: I Have Housing Concerned About Future Housing: No Difficulty Paying Gas/Electric Bills: No Difficulty Paying for Meds: No Currently Unemployed: No Education: High School Diploma/GED Difficulty w/ Childcare or Family Care: No Gender identity (if verbalized by the patient): Female Sexual Orientation (if Verbalized by the Patient): Straight or Heterosexual Spiritual care concerns: No Meds Home Medications and Allergies Home Medications Medication Instructions Recorded Confirmed Type alprazolam 0.25 mg tablet (Xanax) 0.25 mg PO HS PRN Anxiety 10/06/19 08/18/23 History amlodipine 5 mg tablet 2.5 mg PO DAILY
[2023-08-18 11:19] LABS: Thyroid Stimulating Hormone Reflex 3.29 u/IU/mL (0.36-3.74)
[2023-08-18 11:54] LABS: CRP 0.5 mg/dL (0.0-0.9)
[2023-08-18 12:32] LABS: Erythrocyte Sedimentation Rate 48 mm/hr (0-20)
[2023-08-18] MEDS: SODIUM CHLORIDE 0.9% IV 1,000 ML 100 ML IV CONT ×2 (13:10→23:11)
[2023-08-18 13:13] LABS: Appearance Urine Clear (Clear); Bilirubin Urine Negative (Negative); Blood Urine Trace-Intact (Negative); Color Urine Light Yellow (Yellow); Glucose Urine UA Negative (Negative); Ketones Urine Trace (Negative); Leukocyte Esterase Ur Negative LEU/UL (Negative); Nitrate Urine Negative (Negative); Protein Urine Negative (Negative); Specific Grav Ur 1.025 (1.010-1.020); Urobilinogen Urine 0.2 mg/dL (0.2-1.0); pH Urine 5.5 (5.0-8.0)
[2023-08-18 13:48] LABS: Add Urine Microscopic? YES; Bacteria Urine Rare /hpf; RBC Urine None seen /hpf (0-2); Squamous Epithelial Cell Urine Rare /hpf (Few); WBC Urine None seen /hpf (0-3)
[2023-08-18] MEDS: ACETAMINOPHEN 500 MG TABLET 1000 MG PO (17:04)
--- NOTE | 2023-08-18 20:05 | PC.NURSE ---
call to transportation specialist myrna about adding breakthrough pain medication, transportation specialist gives telephone instructions to give robaxin and see if that helps with pain and to lower bp, given verbal order to give x1 dose of amlodipine if bp does not decrease with pain relief
[2023-08-18] MEDS: methocarbamoL 500 MG TABLET PO (21:05)
[2023-08-18] MEDS: APIXABAN 2.5 MG TABLET 5 MG BY MOUTH (21:05)
[2023-08-18] MEDS: PRAVASTATIN SODIUM 20 MG TABLET PO (21:06)
[2023-08-19] VITALS: BP 153/71; PULSE 70; RESP 16; TEMP 36.5; O2SAT 96
--- NOTE | 2023-08-19 00:30 | PC.NURSE ---
Call placed to Justyn Salazar NP, regarding pt's blood pressure of 153/71. TACTICAL DEBRIEFER stated that amlodipine wasnt needed at this time.
--- NOTE | 2023-08-19 00:30 | PC.NURSE ---
Call placed to Justyn Salazar NP, regarding pt's blood pressure. SHEET METAL WORKER SUPERVISOR said that blood pressure was fine and that one time amlodipine order wasnt needed at this time.[id number]
[2023-08-19 04:00] VITALS: BP 168/86; PULSE 77; RESP 18; TEMP 36.6; O2SAT 95
[2023-08-19 05:14] LABS: Basophils Absolute Auto 0.02 K/mm3 (0.00-0.10); Basophils Percent Auto 0.4 % (0.0-1.0); Eosinophils Absolute Auto 0.08 K/mm3 (0.02-0.50); Eosinophils Percent Auto 1.4 % (1.0-6.0); Hematocrit 33.5 % (35.0-42.0); Hemoglobin 10.9 g/dL (11.7-13.8); Immature Granulocyte Absolute 0.02 K/mm3 (0.00-0.00); Immature Granulocyte Percent A 0.4 % (0.0-0.0); Lymphocytes Percent Auto 27.2 % (18.0-42.0); Mean Corpuscular HGB Conc 32.5 g/dL (32.0-36.0); Mean Corpuscular Hemoglobin 30.7 pg (27.0-31.0); Mean Corpuscular Volume 94.4 fL (78.0-102.0); Mean Platelet Volume 9.7 fl (9.2-11.8); Monocytes Absolute Auto 0.43 K/mm3 (0.10-0.90); Monocytes Percent Auto 7.8 % (2.0-11.0); Neutrophils Absolute Auto 3.5 K/mm3 (1.7-7.2); Neutrophils Percent Auto 62.8 % (50.0-70.0); Platelet Count Result 201 K/mm3 (150-420); Red Blood Count 3.55 M/mm3 (4.20-5.40); Red Cell Distribution Width 13.2 % (11.6-14.4); White Blood Count 5.5 K/mm3 (4.8-10.8)
[2023-08-19 05:31] LABS: Alanine Aminotransferase 18 U/L (14-59); Albumin Level 3.2 g/dL (3.4-5.0); Alkaline Phosphatase 54 U/L (46-116); Anion Gap 5 mmol/L (8-16); Aspartate Amino Transferase 15 U/L (15-37); Bilirubin,Total 0.6 mg/dL (0.00-1.00); Blood Urea Nitrogen 20 mg/dL (7-18); Calcium 8.6 mg/dL (8.5-10.1); Carbon Dioxide 31 mmol/L (21-32); Chloride 105 mmol/L (98-108); Estimated CRCL calculation 27 ml/min; Estimated Glomerular Filt Rate 45; Glucose 128 mg/dL (70-99); Osmolality Calculated 296 mOsm/kg (285-295); Potassium 3.5 mmol/L (3.5-5.1); Sodium 141 mmol/L (136-145); Total Protein 6.6 g/dL (6.4-8.2)
[2023-08-19] MEDS: LEVOTHYROXINE SODIUM 100 MCG TABLET PO (06:30)
[2023-08-19] MEDS: POTASSIUM CHLORIDE 20 MEQ ER TABLET PO (06:39)
[2023-08-19 08:00] VITALS: BP 106/98; PULSE 66; RESP 18; TEMP 36.1; O2SAT 96
[2023-08-19] MEDS: amLODIPine BESYLATE 2.5 MG TABLET PO (08:59)
[2023-08-19] MEDS: PARoxetine 10 MG, PARoxetine 20 MG 30 MG PO (08:59)
[2023-08-19] MEDS: LIDOCAINE 5% PATCH 1 PATCH TRANSDERM (08:59)
[2023-08-19] MEDS: ACETAMINOPHEN 500 MG TABLET 1000 MG PO (09:00)
[2023-08-19] MEDS: LOSARTAN POTASSIUM 50 MG TABLET 100 MG PO (09:00)
[2023-08-19] MEDS: CYANOCOBALAMIN 1,000 MCG TABLET 1000 MCG PO (09:00)
[2023-08-19] MEDS: CHOLECALCIFEROL 1,000 UNITS TABLET 1000 UNITS PO (09:01)
[2023-08-19] MEDS: APIXABAN 2.5 MG TABLET 5 MG BY MOUTH (09:01)
[2023-08-19] MEDS: ASPIRIN 81 MG ENTERIC TABLET PO (09:01)
--- NOTE | 2023-08-19 10:34 | PM.DS ---
DS: Admitting Diagnosis Discharge Date 08/19/23 Admitting Diagnosis Weakness, UTI DS: Discharge Diagnosis Discharge Diagnosis (1) Muscle strain: Code(s): T14.8XXA - Other injury of unspecified body region, initial encounter Status: Acute (2) Debility: Code(s): R53.81 - Other malaise Status: Acute (3) Adult failure to thrive: Code(s): R62.7 - Adult failure to thrive Status: Acute (4) Afib: Code(s): I48.91 - Unspecified atrial fibrillation Status: Acute (5) HTN (hypertension): Code(s): I10 - Essential (primary) hypertension Status: Acute DS: Summary Hospital Course Reason for hospitalization: Weakness, depression, Debility Hospital Course: This is a 83 year old female living alone. She initially came t the hospital due to experiencing leg pain and weakness. It was discovered that she has acute kidney injury, which has been improving. She has had Iv Fluids, IV antibiotic and was evaluated by physical therapy in which patient does not want to do anymore. It was recommended patient to have outpatient therapy although she has declined. as she finds it to be overwhelming and not refuses to continue. Oral antibiotics and patient is to increase intake, finish antibiotics and performing exercise at home. Despite her reluctance, physical therapy would generally benefit her by strengthening her, especially considering her history of a previous stroke causing weakness. Time Spent with Patient Time attestation: Total time spent providing and/or coordinating discharge services: Exam Narrative: APPEARANCE: No apparent distress. Head: atraumatic. EYES: EOMI, NOSE: Atraumatic NECK: Trachea midline RESPIRATORY: No increased rate of breathing CARDIOVASCULAR: RRR, ABDOMINAL: Non-distended MUSCULOSKELETAl: No obvious deformities, Tenderness to palpation over the lateral thigh muscles. Pain with back passive and active range of motion. No overlying skin changes. Compartments are soft. Pulses are +2. NEURO: Alert. Moving 4/4 extremities SKIN:: Warm, dry. Normal color PSYCHIATRIC: Normal affect DS: Data Data Completed and Pending Labs on day of discharge: Labs from last 24 hours 08/19/23 08/18/23 08/18/23 05:09 13:05 08:39 WBC 5.5 RBC 3.55 L Hgb 10.9 L Hct 33.5 L MCV 94.4 MCH 30.7 MCHC 32.5 RDW 13.2 Plt Count 201 MPV 9.7 Immature Gran % (Auto) 0.4 H Neut % (Auto) 62.8 Lymph % (Auto) 27.2 [place] % (Auto) 7.8 Eos % (Auto) 1.4 Baso % (Auto) 0.4 Lymph # (Auto) 1.50 [place] # (Auto) 0.43 Eos # (Auto) 0.08 Baso # (Auto) 0.02 Abs Immat Gran (auto) 0.02 H Absolute Neuts (auto) 3.5 Absolute Nucleated RBC 0.00 Nucleated RBC % 0.0 ESR 48 H Sodium 141 Potassium 3.5 Chloride 105 Carbon Dioxide 31 Anion Gap 5 L BUN 20 H Creatinine 1.15 H Estim Creat Clear Calc 27 Estimated GFR 45 L Glucose 128 H Calculated Osmolality 296 H Calcium 8.6 Total Bilirubin 0.6 AST 15 ALT 18 Alkaline Phosphatase 54 C-Reactive Protein 0.5 Total Protein 6.6 Albumin 3.2 L Vitamin D 25-Hydroxy Pending TSH (Reflex) 3.29 Urine Color Light yellow Urine Appearance Clear Urine pH 5.5 Ur Specific [place] 1.025 H Urine Protein Negative Urine Glucose (UA) Negative Urine Ketones Trace H Ur Blood (Man) Trace-intact H Urine Nitrate Negative Urine Bilirubin Negative Urine Urobilinogen 0.2 Leukocyte Esterase Rfl Negative Urine RBC None seen Urine WBC None seen Ur Squamous Epith Cells Rare Urine Bacteria Rare Discharge Plan Discharge Attending physician on discharge: Yan Sierra Consulting providers: Kolby Flores; Renetta Salazar Discharging Clinician: Young Laguerre Anticipated Discharge Date/Time: 08/19/23 10:26 Patient Disposition: Home, Self-Care Activit
--- NOTE | 2023-08-19 13:07 | PC.NURSE ---
1145 dc to home. family at bedside. voices no co. dc instructions went over and verbalizes an understanding. dc per wc to family auto. paperwork given on [employer].
--- NOTE | 2023-08-20 09:20 | PC.NURSE ---
Discharge call back completed. Romana states she is doing well, back to her old self, states everyone was so kind and nice, did receive dc instructions and did not have any questions or concerns related to instructions or stay.
[2023-08-23 19:00] LABS: Vitamin D 25 Hydroxy 38 ng/mL (30-100)
== END 2023-08-19 11:45 | disposition home or self-care (01) ==
LOC: CHSED 09:19 → CHS2ND 09:32
PROVIDERS: Nurse Practitioner; Admitting Provider Internal Medicine; Emergency Provider Emergency Medicine; PCP Internal Medicine; Visit Provider Nurse Practitioner Family
DX: S76.011A Strain of muscle, fascia and tendon of right hip, initial encounter (principal); X50.9XXA Other and unspecified overexertion or strenuous movements or postures, initial encounter; Y93.B9 Activity, other involving muscle strengthening exercises; R53.81 Other malaise; R62.7 Adult failure to thrive; N17.9 Acute kidney failure, unspecified; I12.9 Hypertensive chronic kidney disease with stage 1 through stage 4 chronic kidney disease, or unspecified chronic kidney disease; N18.9 Chronic kidney disease, unspecified; I48.91 Unspecified atrial fibrillation; I69.351 Hemiplegia and hemiparesis following cerebral infarction affecting right dominant side; E03.9 Hypothyroidism, unspecified; M16.11 Unilateral primary osteoarthritis, right hip; F41.9 Anxiety disorder, unspecified; F32.A Depression, unspecified; Z68.26 Body mass index [BMI] 26.0-26.9, adult; Z79.01 Long term (current) use of anticoagulants; Z79.82 Long term (current) use of aspirin; Z79.899 Other long term (current) drug therapy; Z87.891 Personal history of nicotine dependence
CPT/HCPCS: 36415; 73502; 80048; 80053; 81001; 82306; 82550; 84443; 85025; 85652; 86140; 96360; 96361; 97161; 97165; 97530; 99285; A9270; G0378; J7030

== ENCOUNTER 2023-09-05 13:19 | Emergency (ER) | payer MEDICARE, SELFPAY ==
[2023-09-05 13:22] VITALS: BP 166/92; PULSE 66; RESP 20; TEMP 36.2; O2SAT 96
[2023-09-05 13:57] LABS: Appearance Urine Turbid (Clear); Bilirubin Urine 2+ (Negative); Blood Urine 3+ (Negative); Glucose Urine UA Trace (Negative); Ketones Urine 1+ (Negative); Leukocyte Esterase Ur 3+ LEU/UL (Negative); Nitrate Urine Positive (Negative); Protein Urine 3+ (Negative); Specific Grav Ur 1.015 (1.010-1.020); pH Urine 6.5 (5.0-8.0)
[2023-09-05 14:03] LABS: Add Urine Microscopic? YES; Bacteria Urine 1+ /hpf; Color Urine Dark Red (Yellow); RBC Urine >75 /hpf (0-2); Squamous Epithelial Cell Urine Rare /hpf (Few); WBC Urine None seen /hpf (0-3)
--- NOTE | 2023-09-05 14:17 | ED.FEMALEGU ---
HPI - Female Genitourinary General Chief complaint: Urogenital-Female Stated complaint: BLOOD IN URINE Source: patient Mode of arrival: ambulatory Limitations: no limitations History of Present Illness HPI Narrative: This is a an 83-year-old female who presents with dysuria with suprapubic tenderness no hematuria, patient is on Eliquis for history of stroke, otherwise no flank pain no fever chills no nausea vomiting no diarrhea constipation MD elicited complaint: dysuria Related Data Home Medications Medication Instructions Recorded Confirmed alprazolam 0.25 mg tablet (Xanax) 0.25 mg PO HS PRN Anxiety 10/06/19 09/05/23 amlodipine 5 mg tablet 2.5 mg PO DAILY 10/06/19 09/05/23 apixaban 5 mg tablet (Eliquis) 5 mg PO BID 10/06/19 09/05/23 aspirin 81 mg tablet,delayed 81 mg PO DAILY 10/06/19 09/05/23 release (Aspir-) levothyroxine 100 mcg tablet 100 mcg PO DAILY 10/06/19 09/05/23 (Synthroid) losartan 100 mg tablet 100 mg PO DAILY 10/06/19 09/05/23 paroxetine HCl 30 mg tablet (Paxil) 30 mg PO QAM 10/06/19 09/05/23 pravastatin 20 mg tablet 20 mg PO HS 10/06/19 09/05/23 Allergies Allergy/AdvReac Type Severity Reaction Status Date / Time Influenza Virus Vaccines Allergy Unknown Itching Verified 09/05/23 14:00 meperidine Allergy Unknown Nausea and Verified 09/05/23 14:00 Vomiting naproxen Allergy Unknown Rash Verified 09/05/23 14:00 Penicillins Allergy Unknown Rash Verified 09/05/23 14:00 vancomycin Allergy Unknown Rash Verified 09/05/23 14:00 Review of Systems Review of Systems: All systems reviewed & are unremarkable except as noted in HPI and below PMFSH Past Medical History Medical History Afib Finger pain, right HTN (hypertension) Hypothyroidism (acquired) Family History Family History Father Family history of malignant neoplasm Other Asthma Social History Social History Smoking packs per day: 0.25 Smoking cigarettes per day: 5.0 Years smoked: 15 Smoking pack-years: 3.75 Smoking status: Former smoker Tobacco type: cigarettes Second hand tobacco smoke exposure: Yes Smoking end date: 08/18/73 Alcohol intake: never Substance use: never Do You Feel Safe in your Home?: Yes Lack of Transportation: No Lack of Food: Never True Current Housing: I Have Housing Concerned About Future Housing: No Difficulty Paying Gas/Electric Bills: No Difficulty Paying for Meds: No Currently Unemployed: No Education: High School Diploma/GED Difficulty w/ Childcare or Family Care: No Gender identity (if verbalized by the patient): Female Sexual Orientation (if Verbalized by the Patient): Straight or Heterosexual Spiritual care concerns: No Exam Const: General: healthy appearing and no acute distress Nutritional Appearance: well nourished Orientation/consciousness: patient oriented x3 Limitations: no limitations Chest: Chest palpation & inspection: normal inspection of the chest Resp: Effort & Inspection: normal respiratory effort Auscultation: clear to auscultation bilaterally Cardio: Rate: regular rate Rhythm: regular rhythm GI: GI Palp: Yes Soft to palpation and Yes Tenderness to palpation present (GI) Other: suprapubic tenderness with palpation Back/Spine/Pelvis: Back: no CVA tenderness Skin: General skin exam: normal color Rashes: no rashes Course Course Emergency Course: urinalysis performed shows acute urinary tract infection and a dose of Macrobid was started for this patient. Vital Signs Vital signs: Vital Signs Temperature 36.2 C L 09/05/23 13:22 Pulse Rate 66 09/05/23 13:22 Respiratory Rate 20 09/05/23 13:22 Blood Pressure 166/92 H 09/05/23 13:22 Pulse Oximetry 96 09/05/23 13:22 Oxygen Delivery Room Air 09/05/23 13:22 Temperature 36.2 C L 0
[2023-09-05] MEDS: NITROFURANTOIN MONOHYD MACROCR 100 MG CAP PO (14:31)
[2023-09-05 14:33] VITALS: BP 148/88; PULSE 62; RESP 20; TEMP 36.7; O2SAT 96
--- NOTE | 2023-09-08 15:42 | PC.NURSE ---
PRELIMINARY URINE CULTURE RESULTS: GREATER THAN 100,000 CFU/ML OF E COLI. TO AWAIT C&S PER DR NAGEL.
--- NOTE | 2023-09-09 12:28 | PC.NURSE ---
urine culture reviewed. pt started on macrobid. no changes needed at this time per dr soares
== END 2023-09-05 14:36 | disposition home or self-care (01) ==
PROVIDERS: Emergency Provider Emergency Medicine; PCP Internal Medicine
DX: N39.0 Urinary tract infection, site not specified (principal); I48.91 Unspecified atrial fibrillation; I10 Essential (primary) hypertension; E03.9 Hypothyroidism, unspecified; Z79.899 Other long term (current) drug therapy; Z79.01 Long term (current) use of anticoagulants; Z79.82 Long term (current) use of aspirin; Z87.891 Personal history of nicotine dependence
CPT/HCPCS: 81001; 87077; 87086; 87088; 87186; 99283; A9270

== ENCOUNTER 2025-02-07 23:08 | Emergency (ER) | payer MEDICARE, SELFPAY ==
--- NOTE | ~2025-02-07 | XR_ITS ---
XR foot RT min 3V Ordering provider: Yovany Beckman MD History: . pain to TIP OF second digit/NO TRAUMA/BLACKENED WOUND VSIBLE . Comparison: None. FINDINGS: BONES: No acute fracture or dislocation. Hallux valgus. JOINT SPACES: Narrowing of the first metatarsophalangeal and the proximal and distal interphalangeal joints. Osteoarthritic changes of the fifth tarsometatarsal joint. No tarsal coalition. SOFT TISSUES: Soft tissue swelling over the distal phalanx of the second toe. IMPRESSION: No acute osseous abnormality of the right foot. Polyarticular osteoarthritic change. Soft tissue swelling over the distal phalanx of the second toe. Reviewed, dictated and finalized at location A.
[2025-02-07 23:08] VITALS: BP 174/82; PULSE 79; RESP 18; TEMP 35.7; O2SAT 95
--- OUTSIDE RECORDS SUMMARY | 2025-02-07 23:10 | XMS_ITS | Clinical Summary ---
Author Organization [facility] Address [address] [place] [address] Phone Care Team Providers Care Records Supervisor Name Role Phone Unavailable Primary Care Provider Unavailabl e Allergies Active Allergy Reactions Criticality Noted Date Comments Penicillins Rash 01/23/2016 Medications No known medications Family History Medical History Relation Name Comments Cancer Father Relation Name Status Comments Father Mother Social History Tobacco Use Types Packs/Day Years Used Date Smoking Tobacco: Former Cigarettes Q uit: 01/22/1965 Alcohol Use Standard Drinks/Week Comments No 0 (1 standard drink = 0.6 oz pur e alcohol) Comments Unknown Sex and Gender Information Value Date Recorded Sex Assigned at Not on file Legal Sex Female 7:16 PM CDT Gender Identity Not on file Sexual Orientation Not on file Last Filed Vital Signs Vital Sign Reading Time Taken Comments Blood Pressure - - Pulse - - Temperature - - Respiratory Rate - - Oxygen Saturation - - Inhaled Oxygen Concentration - - Weight 72.6 kg (160 lb) 01/23/2016 11:00 AM CDT Height 167.6 cm (5' 6) 01/23/2016 11:00 AM CDT Body Mass Index 25.82 01/23/2016 11:00 AM CDT Plan of Treatment Not on file
--- NOTE | 2025-02-07 23:16 | ED_ITS ---
HPI - Extremity Injury (Lower) General Chief Complaint: Extremity Injury, Lower Stated Complaint: foot pain Time Seen by Provider: 02/07/25 23:14 Source: patient Mode of arrival: ambulatory Limitations: no limitations History of Present Illness HPI Narrative: Patient is an 84-year-old female with a right foot 2nd digit pain for the past month. Her primary doctor tried to remove something from this toe over a month ago and she has been having problems and pain since that time. She has a plan to see a commercial real estate paralegal in the next week. The pain is getting significant and she came to the ER for evaluation. MD complaint: foot injury ( Right foot 2nd digit) Onset (ago): month(s) ( 1) Type of Injury: puncture wound Place: other ( primary doctor office 1 month ago) Severity: moderate Severity scale (1-10): 7 Relieving factors: nothing Exacerbating factors: weight bearing, movement and palpation Context: other ( patient had a right foot 2nd digit distal tip foreign body removal event with the primary doctor a month ago.) Associated symptoms: swelling and able to partially bear weight Other symptoms: none Treatments prior to arrival: other ( None) Related Data Home Medications ?Medication ?Instructions ?Recorded ?Confirmed ?Last Taken ?Type alprazolam 0.25 mg tablet (Xanax) 0.25 mg PO HS PRN Anxiety 10/06/19 09/05/23 Unknown History amlodipine 5 mg tablet 2.5 mg PO DAILY 10/06/19 09/05/23 05/21/22 History apixaban 5 mg tablet (Eliquis) 5 mg PO BID 10/06/19 09/05/23 05/21/22 History aspirin 81 mg tablet,delayed 81 mg PO DAILY 10/06/19 09/05/23 05/21/22 History release (Aspir-) levothyroxine 100 mcg tablet 100 mcg PO DAILY 10/06/19 09/05/23 05/21/22 History (Synthroid) losartan 100 mg tablet 100 mg PO DAILY 10/06/19 09/05/23 05/21/22 History paroxetine HCl 30 mg tablet (Paxil) 30 mg PO QAM 10/06/19 09/05/23 05/21/22 History pravastatin 20 mg tablet 20 mg PO HS 10/06/19 09/05/23 05/21/22 History Allergies Allergy/AdvReac Type Severity Reaction Status Date / Time Influenza Virus Vaccines Allergy Unknown Itching Verified 02/07/25 23:27 meperidine Allergy Unknown Nausea and Verified 02/07/25 23:27 Vomiting naproxen Allergy Unknown Rash Verified 02/07/25 23:27 Penicillins Allergy Unknown Rash Verified 02/07/25 23:27 vancomycin Allergy Unknown Rash Verified 02/07/25 23:27 Review of Systems Review of Systems: All systems reviewed & are unremarkable except as noted in HPI and below Constitutional: Constitutional: Reports no additional constitutional complaints Eyes: Eyes: Reports no additional eye complaints ENT: Reports system reviewed and no additional complaints, except as documented Cardiovascular: Cardiovascular: Reports no additional cardiovascular complaints Respiratory: Respiratory: Reports no additional respiratory complaints Gastrointestinal: Gastrointestinal: Reports no additional gastrointestinal complaints Genitourinary: Genitourinary: Reports no additional female genitourinary complaints Musculoskeletal: Musculoskeletal: Reports no additional musculoskeletal complaints Integumentary/Breasts: Skin/Breast: Reports system reviewed and no additional complaints, except as docu Neurologic: Reports system reviewed and no additional complaints, except as documented Psychiatric: Psychiatric: Reports no additional psychiatric complaints Endocrine: Endocrine: Reports no additional endocrine complaints Hematologic/Lymphatic: Hematologic/Lymphatic: Reports no additional hematologic/lymphatic complaints Allergic/Immunologic: Allergic/Immunologic: Reports no additional allergic/immunologic complaints PMFSH Past Medical History Medical History Finger pain, right HTN (hypertension) Hypothyroidism (acquired) Afib Family History Family History Father Family history of malignant neoplasm Other Asthma Social History Social History Smoking packs per day: 0.25 Smoking cigarettes per day: 5.0 Years smoked: 15 Smoking pack-years: 3.75 Smoking status: Former smoker Tobacco type: cigarettes Second hand tobacco smoke exposure: Yes Smoking end date: 08/18/73 Alcohol intake: never Substance use: never Do You Feel Safe in your Home?: Yes Lack of Transportation: No Lack of Food: Never True Current Housing: I Have Housing Concerned About Future Housing: No Difficulty Paying Gas/Electric Bills: No Difficulty Paying for Meds: No Currently Unemployed: No Education: High School Diploma/GED Difficulty w/ Childcare or Family Care: No Gender identity (if verbalized by the patient): Female Sexual Orientation (if Verbalized by the Patient): Straight or Heterosexual Spiritual care concerns: No Exam Const: General: healthy appearing Nutritional Appearance: well nourished Orientation/consciousness: patient oriented x3 HENMT: Head: normal to inspection Ears: external ears normal Face/Nose/Sinus: Normal external nose present Eyes: Conjunctivae: conjunctivae normal Pupils: Equal, round and reactive pupils present EOM: EOMs intact bilaterally Neck: Neck: normal visual inspection Chest: Chest palpation & inspection: normal inspection of the chest Resp: Effort & Inspection: normal respiratory effort and not labored Auscultation: clear to auscultation bilaterally and no crackles Cardio: Rate: regular rate Rhythm: regular rhythm Heart sounds: no murmurs Skin: General skin exam: normal color Rashes: no rashes Wounds: wound noted Other: right foot 2nd digit distal tip has a nidus of wound opening from foreign body attempt a month ago; half the digit is red with erythema and swelling with generalized tenderness to the area Neuro: General: patient oriented x3 Cranial nerves: Yes Nystagmus not present Speech: normal speech Extrem: General: normal to inspection Psych: Mental Status: mental status grossly normal Affect: normal affect Attitude: cooperative Course Vital Signs Vital signs: Vital Signs Temperature 35.7 C L 02/07/25 23:08 Pulse Rate 79 02/07/25 23:08 Respiratory Rate 18 02/07/25 23:08 Blood Pressure 174/82 H 02/07/25 23:08 Pulse Oximetry 95 02/07/25 23:08 Oxygen Delivery Room Air 02/07/25 23:08 Temperature 35.7 C L 02/07/25 23:08 Pulse Rate 79 02/07/25 23:08 Respiratory Rate 18 02/07/25 23:08 Blood Pressure 174/82 H 02/07/25 23:08 Pulse Oximetry 95 02/07/25 23:08 Oxygen Delivery Room Air 02/07/25 23:08 MDM - Extremity Injury (Lower) MDM Narrative Medical decision making narrative: patient is an 84-year-old female with a right foot 2nd digit distal tip pain that is unbearable at this time according to the patient. We will start with an x-ray. Imaging Data Attestation: I personally reviewed and interpreted this imaging study as fo jasmni: Radiologist's impression: right foot x-ray is negative for acute process and there is soft tissue swelling on the 2nd digit distal tip Discharge Plan Discharge Clinical Impression: Cellulitis of toe Qualifiers: Laterality: right Qualified Code(s): L03.031 - Cellulitis of right toe Patient Disposition: Home Condition: Stable Instructions: Antibiotic Form, Cellulitis (ED) Patient Language: Vietnamese Prescriptions: New sulfamethoxazole-trimethoprim [Bactrim DS] 800-160 mg tablet 1 tablet PO BID 10 Days Qty: 20 0RF hydrocodone-acetaminophen 5-325 mg tablet 1 tablet PO Q8H PRN (Reason: pain) Qty: 20 0RF No Action amlodipine 5 mg tablet 2.5 mg PO DAILY aspirin [Aspir-81] 81 mg Tablet,Delayed Release (Dr/Ec) 81 mg PO DAILY levothyroxine [Synthroid] 100 mcg tablet 100 mcg PO DAILY paroxetine HCl [Paxil] 30 mg Tablet 30 mg PO QAM pravastatin 20 mg tablet 20 mg PO HS losartan 100 mg tablet 100 mg PO DAILY Eliquis 5 mg tablet 5 mg PO BID alprazolam [Xanax] 0.25 mg Tablet 0.25 mg PO HS PRN (Reason: Anxiety) nitrofurantoin monohyd/m-cryst [Macrobid] 100 mg capsule 100 mg PO Q12H 7 Days Qty: 14 0RF Rx Instructions: must administer with a meal/food Follow-up/Referrals: Michael Dowd MD [Primary Care Provider] - Time of Disposition: 23:49
--- NOTE | 2025-02-07 23:26 | PC.NURSE ---
VISITORS AT THE BEDSIDE. CALL LIGHT IN REACH. OFFERED BLANKET. DOES NOT WANT BLANKET AT THIS TIME
--- NOTE | 2025-02-07 23:44 | PC.NURSE ---
DR NAGEL AT THE BEDSIDE
--- OUTSIDE RECORDS SUMMARY | 2025-02-07 23:46 | XMS_ITS | Continuity of Care Document ---
Author Organization [facility] Address [address] [place] [address] [address] [place] [address] Phone Care Team Providers Care Basket Sorter Name Role Phone Nabeel Cruz Unavailable Unavailable [...] Copied on Encounter Office/outpat ient Visit, Est [facility], [address] [place], [place] [address], [place], [place], [id number], tel:[phone] [facility] No Information 4-201 0 Anthony Lees. Critical access hospital[facility]inh [facility] , [facility], [place], [address], [place]. tel:[phone] Referring Provider: Esperanza Kwong [facility] [address], [place], [address]. tel:[phone] [facility], [address] [place] [address] [address], [place], [place], [id number], tel:[phone] SEC [facility] Professional No Information 0 1-200 9 Krishnasamy Sebastián. [address] [place], [place] [address], [facility] [place], . tel:[phone] [facility], [address] [place] [address] [address], [place], [place], [address], [place] tel:[phone] SEC [place] Professional No Information May-2 5200 9 Janet Thomason. [address] [facility], [address], [place], [place], [address], [place]. tel:[phone] [facility], [address], [place], [place], [address], [place] tel:[phone] Paul[facility] No Information May- 9 Krishnasamy Sebastián. [address], [facility] [place], . tel:[phone] Office Consultation [facility] Eye [facility], [address] [place] [address] [address], [place], [place], [address], [place] tel:[phone] SEC [place] Professional No Information Mar- 9 Krishnasamy Sebastián. Critical access hospital[address], [facility] [place], [place]. [phone] Family History Family Member Type Diagnosis Age At Onset No Information Payers Payer name Insurance type Covered republican ID Authorsusana cheyenne(s) [place] [id number] Social History Type Description Quantity Date Captured [...]
--- OUTSIDE RECORDS SUMMARY | 2025-02-07 23:46 | XMS_ITS | Clinical Summary ---
Author Organization [facility] Address [address] [place] [address] Phone Care Team Providers Care Gas Turbine Mechanic Name Role Phone Unavailable Primary Care Provider [...]
[2025-02-07] MEDS: SULFAMETHOXAZOLE/TRIMETHOPRIM 800/160 MG DS TABLET 1 TAB PO (23:54)
[2025-02-07] MEDS: HYDROcodone/acetaminophen (*CRX) 5-325 MG TABLET 1 TAB PO (23:54)
[2025-02-08 00:09] VITALS: BP 152/80; PULSE 80; RESP 18; O2SAT 94
== END 2025-02-08 00:09 | disposition home or self-care (01) ==
PROVIDERS: Emergency Provider Emergency Medicine; PCP Internal Medicine
DX: L03.031 Cellulitis of right toe (principal); E03.9 Hypothyroidism, unspecified; I10 Essential (primary) hypertension; I48.91 Unspecified atrial fibrillation; Z87.891 Personal history of nicotine dependence
CPT/HCPCS: 73630; 99283; A9270

== ENCOUNTER 2025-02-14 10:40 | Outpatient (CLI) | payer MEDICARE, SELFPAY ==
--- NOTE | 2025-02-14 10:53 | ECG_ITS ---
Test Date: 2025-02-14 11:11:24 Measurements Intervals [place] Rate: 71 P: 0 NH: 0 QRS: 1 QRSD: 81 T: 33 QT: 372 QTc: 406 Interpretive Statements ATRIAL FIBRILLATION ANTEROSEPTAL INFARCT, AGE INDETERMINATE CONSIDER INFERIOR INFARCT, AGE INDETERMINATE BORDERLINE ST-T WAVE ABNORMALITY- HIGH LATERAL LEADS BASELINE ARTIFACT- II, III, AVF ABNORMAL ECG No previous ECG available for comparison Electronically Signed On 02-14-2025 12:03:21 CDT by Kaushik Torres D.O.
--- OUTSIDE RECORDS SUMMARY | 2025-02-14 11:48 | XMS_ITS | Continuity of Care Document ---
Author Organization [facility] Address [address] [place] [address] [address] [place] [address] Phone Care Team Providers Care Abrasive Grader Helper Name Role Phone Nabeel Cruz Unavailable Unavailable [...] Copied on Encounter Office/outpat ient Visit, Est [facility], [address] [place], [place] [address], [place], [place], [id number], tel:[phone] SEC [facility] No Information 4-201 0 Anthony Lees. Critical access hospitalVinh [facility] , [facility] [address], [place], [address], [place]. tel:[phone] Referring Provider: Esperanza Kwong [facility] [address], [place], [address]. tel:[phone] [facility], [address] [place] [address] [address], [place], [place], [address], tel:[phone] SEC [facility] Professional No Information 0 1-200 9 Krishnasamy Sebastián. [address] [place], [place] [address], [facility], . tel:[phone] [facility], [address] [place] [address] [address], [place], [place], [address], [place] tel:[phone] SEC [place] Professional No Information May-2 5200 9 Janet Thomason. [address] [facility], [address], [place], [place], [address], [place]. tel:[phone] [facility], [address], [place], [place], [address], [place] tel:[phone] Paul[facility] No Information May- 9 Krishnasamy Sebastián. [address], [facility], . tel:[phone] Office Consultation [facility], [address] [place] [address] [address], [place], [place], [address], [place] tel:[phone] SEC [place] Professional No Information Mar- 9 Krishnasamy Sebastián. Critical access hospital1 [address], [facility], [place]. [phone] Family History Family Member Type Diagnosis Age At Onset No Information Payers Payer name Insurance type Covered green party ID Authorsusana cheyenne(s) [place] [id number] Social History Type Description Quantity Date Captured [...]
--- OUTSIDE RECORDS SUMMARY | 2025-02-14 11:48 | XMS_ITS | Clinical Summary ---
Author Organization [facility] Address [address] [place] [address] Phone Care Team Providers Care Assembler Knife Name Role Phone Unavailable Primary Care Provider [...]
== END 2025-02-14 10:41 | disposition home or self-care (01) ==
PROVIDERS: PCP Internal Medicine; Visit Provider Anesthesiology
DX: R94.31 Abnormal electrocardiogram [ECG] [EKG] (principal); I48.91 Unspecified atrial fibrillation; E78.5 Hyperlipidemia, unspecified; I10 Essential (primary) hypertension
CPT/HCPCS: 93005

== ENCOUNTER 2025-02-16 00:55 | Day surgery (SDC) | payer MEDICARE, SELFPAY ==
[2025-02-14 09:25] VITALS: BMI 25.7
--- NOTE | 2025-02-14 09:36 | PC.NURSE ---
Report to the Outpatient Waiting Room, entrance under the green pavilion located off [facility], at time ___12:00pm____ on date __02/16/25 . Planned Procedure Time: _2:00pm .? Time changes happen often and if your time is changed the preop area will call you the afternoon before. - You and your visitor will be asked to self-screen and do not enter if you have any COVID symptoms. Please call surgeon if you need to reschedule. - A mask is optional within the hospital at this time. Patients may have clear liquids (water, carbonated beverages, clear teas, apple juice) until 3 hours prior to surgery with a maximum of 20 ounces. - No food from midnight until time of surgery and no smoking, or chewing tobacco (or any form of nicotine). No chewing gum, candy or mints.(1100am) Take only the following medications with a SIP of water on the morning of surgery: ____Levothyroxine DO NOT STOP ANY OF YOUR OTHER PRESCRIPTION MEDICATIONS PRIOR TO SURGERY EXCEPT THE FOLLOWING Hold all vitamins and supplements for 3 days per anesthesiologist. Medications to discontinue per physician NONE Date to take last dose NONE Please no make-up, nail kazakh, hairspray, perfume, deodorant, or body powder the day of surgery.? No jewelry (including any body piercings) or valuables the day of surgery, leave them at home.? Please take a shower or bath the night before, or the morning of, surgery with an antibacterial soap.? Wear comfortable, loose fitting clothing.? - Jewelry must be removed prior to entering the operating room.? Rings and piercings that are not removed may be cut off. - The hospital will not accept responsibility for valuables.? - Please leave all valuables, including medications, at home the day of surgery. If you are going home after surgery, a licensed long haul truck driver must drive you home.? - NO public transportation without another adult if you receive anesthesia. - We recommend that an adult stay with you for 24 hours following discharge. - We also recommend that you do not drive, make important decision, drink alcoholic beverages, or take any drugs that were not prescribed by your health care provider for at least 24 hours after your discharge time. Follow any additional instructions given to you from your surgeon. Telephone instructions given to ___Patient and asked if any additional questions and then verbalized understanding. Patient advised to call surgeon office or pre surgery nurse liaison [phone] if any additional questions.
[2025-02-16] VITALS (10 sets, daily range): BP systolic 92–156; BP diastolic 48–94; PULSE 61–88; RESP 14–20; TEMP 36.6–37.1; O2SAT 91–99; BMI 25.2
--- OUTSIDE RECORDS SUMMARY | 2025-02-16 01:02 | XMS_ITS | Clinical Summary ---
Author Organization [facility] Address [facility] [place] [address] Care Team Providers Care Florist Name Role Phone Michael Dowd MD Primary Care Provider [phone] Brant Jerez MD Unavailable [phone] Allergies No known active allergies Medications amlodipine 5 MG tablet 02/05/2016 Active lisinopril 10 MG tablet 12/17/2015 Active levothyroxine 88 MCG tablet Take 88 mcg by mouth daily. Active paroxetine 40 MG tablet Take 40 mg by mouth every morning. Active aspirin 81 MG chewable tablet Chew 81 mg by mouth daily. Active pravastatin 20 MG tablet Take 20 mg by mouth daily. Active ALPRAZolam 0.25 MG tablet Take 0.25 mg by mouth nightly as needed for Sleep. Active apixaban 5 MG tablet Take 5 mg by mouth 2 (two) times daily. Active Active Problems Problem Noted Date Diagnosed Date Persistent atrial fibrillation ([facility]) 02/27/2016 CHF (congestive heart failure) (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) 02/27/2016 HTN (hypertension) 02/27/2016 Mixed hyperlipidemia 02/27/2016 Social History Tobacco Use Types Packs/Day Years Used Date Smoking Tobacco: Never Alcohol Use Standard Drinks/Week Comments No 0 (1 standard drink = 0.6 oz pur e alcohol) Comments Unknown Sex and Gender Information Value Date Recorded Sex Assigned at Not on file Legal Sex Female 10:44 PM CDT Gender Identity Not on file Sexual Orientation Not on file Last Filed Vital Signs Vital Sign Reading Time Taken Comments Blood Pressure 108/64 02/22/2016 2:06 PM CDT Pulse 84 02/22/2016 2:06 PM CDT Temperature - - Respiratory Rate 18 02/22/2016 2:06 PM CDT Oxygen Saturation 97% 02/22/2016 2:06 PM CDT Inhaled Oxygen Concentration - - Weight 70.3 kg (155 lb) 02/22/2016 2:06 PM CDT Height 167.6 cm (5' 6) 02/22/2016 2:06 PM CDT Body Mass Index 25.02 02/22/2016 2:06 PM CDT Plan of Treatment Health Maintenance Due Date Last Done Comments DTaP, Tdap and Td Vaccines ( 1 - Tdap) 1957 Pneumococcal Vaccine: 50+ Ye ars (1 of 2 - PCV) 1957 Zoster Vaccines (1 of 2) 1988 Annual Medicare Wellness Visit 2003 RSV Immunization or 60+ Years (1 - 1-dose 75+ series) 2013 COVID-19 Vaccine ( - 2023-2 5 season) 2024 Meningococcal B Vaccine Aged Out No l onger eligible based on patient's age to complete this topic Meningococcal Vaccine Aged Out No aric jony eligible based on patient's age to complete this topic RSV Immunizations Under 20 Months Aged Out No longer eligible based on patient's age to complete this topic Insurance GENERIC - COMMERCIAL on file MEDICARE Care Teams Florist Relationship Specialty Start Date End Date Michael Dowd MD [address] [place] [id number] PCP - General INTERNAL MEDICINE 02/21/16 Brant Jerez MD [address] [place] [address] CARDIOVASCULAR DISEASE 02/21/16
--- OUTSIDE RECORDS SUMMARY | 2025-02-16 01:02 | XMS_ITS | Continuity of Care Document ---
Author Organization [facility] Address [address] [place] [address] [address] [place] [address] Phone Care Team Providers Care Painter Interior Finish Name Role Phone Nabeel Cruz Unavailable Unavailable [...] Copied on Encounter Office/outpat ient Visit, Est [facility], [address] [place], [place] [address], [place], [place], [address], tel:[phone] [facility] No Information 4-201 0 Anthony Lees. [facility] , [facility] [address], [place], [address], [place]. tel:[phone] Referring Provider: Esperanza Kwong [facility] [address], [place], [address]. tel:[phone] [facility], [address] [place] [address] [address], [place], [place], [address], tel:[phone] SEC [facility] Professional No Information 0 1-200 9 Krishnasamy Sebastián. [address] [place], [place] [address], [facility], . tel:[phone] [facility], [address] [place] [address] [address], [place], [place], [address], [place] tel:[phone] SEC [place] Professional No Information May-2 5200 9 Janet Thomason. [address] [facility], [address], [place], [place], [address], [place]. tel:[phone] [facility], [address] [place] [address], [place], [place], [address], [place] tel:[phone] Paulina [facility] No Information May- 9 Krishnasamy Sebastián. [address], [facility], . tel:[phone] Office Consultation [facility] Eye [facility], [address] [place] [address] [address], [place], [place], [address], [place] tel:[phone] SEC [place] Professional No Information Mar- 9 Krishnasamy Sebastián. [facility] [address], [facility], [place]. [phone] Family History Family Member Type Diagnosis Age At Onset No Information Payers Payer name Insurance type Covered green party ID Authorsusana cheyenne(s) [place] [id number] Social History Type Description Quantity Date Captured [...]
--- OUTSIDE RECORDS SUMMARY | 2025-02-16 01:02 | XMS_ITS | Clinical Summary ---
Author Organization [facility] Address [address] [place] [address] Phone Care Team Providers Care Raw Stock Drier Tender Name Role Phone Unavailable Primary Care Provider [...]
--- NOTE | 2025-02-16 10:48 | WPDHPUPDATE1 ---
History and Physical Update Update Date/Time: 02/16/25 10:48 History and Physical has been reviewed, including an updated exam of the patient. There are NO changes in the patient's condition. Risks, benefits, and alternatives have been discussed and questions answered. Patient agrees to proceed with procedure.
--- NOTE | 2025-02-16 12:48 | WPDANESEPPF ---
Anes - Initial Pre Proc Eval Procedure: Operation Date: 02/16/25 14:00 Proposed Procedures p Right Second Toe Amputation - Ori Herron MD Date/Time: 02/16/25 12:48 Surgeon: Ori Herron MD Pre Op Diagnosis: rt 2nd hammer toe Patient Data Age: 84 Gender: F Height: 1.65 m Weight: 70 kg Allergies Allergy/AdvReac Type Severity Reaction Status Date / Time Influenza Virus Vaccines Allergy Unknown Itching Verified 02/14/25 09:17 meperidine Allergy Unknown Nausea and Verified 02/14/25 09:17 Vomiting naproxen Allergy Unknown Rash Verified 02/14/25 09:17 Penicillins Allergy Unknown Rash Verified 02/14/25 09:17 vancomycin Allergy Unknown Rash Verified 02/14/25 09:17 Home Medications ?Medication ?Instructions ?Recorded ?Confirmed ?Type alprazolam 0.25 mg tablet (Xanax) 0.25 mg PO HS PRN Anxiety 10/06/19 02/14/25 History amlodipine 5 mg tablet 2.5 mg PO DAILY 10/06/19 02/14/25 History apixaban 5 mg tablet (Eliquis) 5 mg PO BID 10/06/19 02/14/25 History aspirin 81 mg tablet,delayed 81 mg PO DAILY 10/06/19 02/14/25 History release (Aspir-) levothyroxine 100 mcg tablet 100 mcg PO DAILY 10/06/19 02/14/25 History (Synthroid) losartan 100 mg tablet 100 mg PO DAILY 10/06/19 02/14/25 History pravastatin 20 mg tablet 20 mg PO HS 10/06/19 02/14/25 History paroxetine HCl 40 mg tablet 40 mg PO .day 02/14/25 02/14/25 History vit D3-folic acid-vit B2-B6-B12 1 tablet PO DAILY 02/14/25 02/14/25 History 2,000 unit-800 mcg-0.32 mg tablet Patient hx anesthesia problems: post op nausea/vomiting Family hx anesthesia problems: none Results Review: All pre-operative results and documents have been reviewed as part of the pre-operative evaluation. [facility] Past Medical History Medical History Hammer toe of second toe of right foot Ulcer of right second toe with necrosis of muscle Finger pain, right HTN (hypertension) Hypothyroidism (acquired) Afib Family History Family History Father Family history of malignant neoplasm Other Asthma Social History Social History Smoking packs per day: 0.25 Smoking cigarettes per day: 5.0 Years smoked: 15 Smoking pack-years: 3.75 Smoking status: Former smoker Tobacco type: cigarettes Second hand tobacco smoke exposure: Yes Smoking end date: 08/18/73 Alcohol intake: never Substance use: never Do You Feel Safe in your Home?: Yes Lack of Transportation: No Lack of Food: Never True Current Housing: I Have Housing Concerned About Future Housing: No Difficulty Paying Gas/Electric Bills: No Difficulty Paying for Meds: No Currently Unemployed: No Education: High School Diploma/GED Difficulty w/ Childcare or Family Care: No Living arrangements: alone Gender identity (if verbalized by the patient): Female Sexual Orientation (if Verbalized by the Patient): Straight or Heterosexual Spiritual care concerns: No Anes - Eval Final PreProcedure Day of Procedure 02/16/25 12:48 Patient weight: normal Heart: regular rate and rhythm Lungs: decreased breath sounds Airway: Mallampati scale class II Neurological: alert and oriented Last oral intake: >/= 8 hours ASA classification: IV Emergent: no Anesthetic plan: proceed Anesthesia type and monitoring: general LMA and standard monitoring Results Review: All pre-operative results and documents have been reviewed as part of the pre-operative evaluation. Informed Consent: The patient's anesthetic plan and its attendant risks and benefits were discussed with the patient/family/POA. Questions were solicited and answers provided to the satisfaction of the patient/family/POA.
[2025-02-16] MEDS: LACTATED RINGERS 1,000 ML 30 ML IV CONT ×2 (13:00→15:20)
[2025-02-16] MEDS: ACETAMINOPHEN 500 MG TABLET 1000 MG PO (13:05)
[2025-02-16] MEDS: ceFAZolin 2 GM/D5W 50 ML 2 GM/50 ML BAG IVPB (14:03)
--- NOTE | 2025-02-16 14:20 | S_PTH ---
PATIENT: Romana Kendall LOC: [facility] U#:[id number] AGE/SX: 84/F ROOM: RE02/16/[address]: Ori Herron MD : 1940 BED: DIS: 02/16/2025 SPEC #: [id number] RECD: 02/17/25 08:36 STATUS: FAY REQ #: [id number] KIM: 02/16/25 14:[address]: Ori Herron DEPT: [facility] Surgical RECD BY: Courtney Ortiz ENTERED: 02/17/25 08:36 SP TYPE: Surgical OTHR DR: Michael Dowd MD Tissues: A - Toe Procedures: Hematoxylin and Eosin Stain Gross and Microscopic Level 4 Decalcification
[2025-02-16] MEDS: BUPivacaine HCL 0.5% 10 ML AMP INFILTRATE (14:27)
--- NOTE | 2025-02-16 14:39 | P.OP_ITS ---
Procedure Note - Detailed Date of Procedure 02/16/25 Pre-op Diagnosis rt 2nd hammer toe Post-op Diagnosis Same Procedure Performed Right 2nd toe amputation interphalangeus Surgeon Ori Herron MD [facility] 1st certified surgical tech/first assistant Anesthesia General Indications 84-year-old with right 2nd hammertoe deformity which is led to an ulcer on the plantar distal aspect. There is severe pain with weight-bearing and ambulation. Patient desires operative removal of the toe. Description of Procedure Patient identified in the preoperative holding. Informed consent given. Operative extremity marked. Patient received intravenous antibiotics. Patient brought to the operating room where underwent general anesthetic by anesthesia team. Positioned supine on operating room table. Time-out performed confirming the patient, site of the surgery and the plan. Right foot prepped and draped usual sterile surgical fashion using a Betadine prep solution. Foot exsanguinated an Esmarch bandage secured at the ankle as a tourniquet. Local anesthetic with 0.5% Marcaine injected. A 15 blade knife used to ellipse the midportion of the 2nd toe leaving plantar skin for repair. The ligaments were sectioned at the distal interphalangeal joint and the distal aspect of the toe was removed with the nail and the ulcer. Bleeding points were coagulated. Tourniquet released. Wound irrigated and skin closed with 4-0 nylon interrupted suture. Sterile dressing applied. The patient was then woken from anesthesia, extubated and taken to the recovery room in stable condition. All sponge, needle, instrument counts were correct at the end of the case. Estimated Blood Loss 2 Tourniquet Time Total Tourniquet Time: 17 Drains No Packing No Pathology None sent Complications None Condition Stable Disposition PACU [facility] Billing Surgery - Charge Forward: Surgery Billing ([id number])
== END 2025-02-16 16:25 | disposition home or self-care (01) ==
PROVIDERS: PCP Internal Medicine; Visit Provider Orthopaedic Surgery
PROC: (CPT 28825; principal; 2025-02-16 14:00)
DX: M20.41 Other hammer toe(s) (acquired), right foot (principal); Z87.891 Personal history of nicotine dependence
CPT/HCPCS: 28825; 88305; 88311; A9270; J0690; J1100; J2003; J2405; J2704; J3010; J7120

== ENCOUNTER 2025-02-27 08:40 | Outpatient (CLI) | payer MEDICARE, SELFPAY ==
--- NOTE | ~2025-02-27 | XR_ITS ---
XR foot RT min 3V Ordering provider: Ori Herron MD History: . ulcer removed on 2nd phalange . Comparison: None. FINDINGS: BONES: No acute fracture or dislocation. Osteopenia of the bones. Hallux valgus. Small bony fragment seen in the area of the distal phalanx of the second toe. JOINT SPACES: Osteoarthritic changes of the first metatarsophalangeal joint and in the fifth tarsomet atarsal joint. No tarsal coalition. SOFT TISSUES: Soft tissue swelling over the distal phalanx of the second toe IMPRESSION: Small bony fragments in the area of the distal phalanx of the second toe with soft tissue swelling. Hallux valgus. Reviewed, dictated and finalized at location A. IMPRESSION: Small bony fragments in the area of the distal phalanx of the second toe with s oft tissue swelling. Hallux valgus.
== END 2025-02-27 08:41 | disposition home or self-care (01) ==
LOC: CHSIMG 08:42
PROVIDERS: PCP Internal Medicine; Visit Provider Orthopaedic Surgery
DX: Z47.89 Encounter for other orthopedic aftercare (principal); M79.89 Other specified soft tissue disorders; M20.11 Hallux valgus (acquired), right foot
CPT/HCPCS: 73630

== ENCOUNTER 2025-03-09 10:00 | Outpatient (RCR) | payer MEDICARE, SELFPAY ==
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
[2025-01-17 10:00] VITALS: BP 135/80; PULSE 80; RESP 18; TEMP 36.4; O2SAT 97
[2025-01-19 10:22] VITALS: BP 148/77; PULSE 82; RESP 18; TEMP 36.8; O2SAT 97
[2025-01-24 09:59] VITALS: BP 132/76; PULSE 77; RESP 20; TEMP 36.9; O2SAT 96
[2025-01-26 09:54] VITALS: BP 150/73; PULSE 83; RESP 20; TEMP 36.8; O2SAT 95
--- NOTE | 2025-01-26 10:51 | PC.NURSE ---
No nursing group due to MD visit.
--- NOTE | 2025-01-26 12:29 | WPDSLSPROGRE ---
Progress HPI Progress HPI Visit Attended By patient and staff History Obtained From patient Patient Stated Chief Complaint pretty good HPI This is a follow-up from admission. Patient is being seen for depression anxiety. Enjoys the program participates well. She is attending 2 days a week, and the group is working on motivation, loneliness, among other topics. She ended up increasing her Paxil to 40 mg q.day as her PCP recommended, and she has been on this dose for about a week. She thinks that she might be a bit better, and even had the motivation to clean out some cabinets recently. Takes Xanax p.r.n. q.h.s. very infrequently, around once a month. BP has been high and low sleeping about 10-1/2 hours a night. Average Number of Hours of Sleep 10 Sleep Quality frequent awakening Change in PMFSH Releveant to Presenting Illness Yes Describe Changes in PMFSH Some improvement as per HPI Review of Systems Review of Systems Constitutional Reports fatigue, generalized weakness and other ( chronic kidney disease) Eyes Reports WNL ENT Reports other ( hearing loss) Respiratory Reports WNL Cardiovascular Reports other ( hypertension, atrial fibrillation) Gastrointestinal Reports WNL Musculoskeletal Reports abnormal gait, Reports assistive device, Reports diminished strength, Reports muscle stiffness and Reports other ( osteoporosis, osteoarthritis, chronic pain) Neurologic Reports other ( CVA x3, ataxia) Skin Reports WNL ADL's Reports WNL and Reports independent Exam Physical Exam Review of Lab Studies n/a Hygiene good General Behavior/Attitude Toward Examiner pleasant and cooperative Pain Yes Pain Location generalized Pain Characteristics chronic and aching Psychiatric Exam Level of Consciousness alert Orientation person, place, time and situation Speech normal rate/tone/volume/prosody and coherent Language able to comprehend questions Mood less depressed Affect full range, appropriate and congruent Thought Processes/Form logical, linear and goal directed Thought Content depressive symptoms Delusions none Homicidal/Assaultive Ideation none Suicidal Ideation none Hallucinations none Attention/Concentration focused Attention/Concentration Testing Methods observation/interview Short Term Memory Impairment mild STM Testing Methods clinical interview (assessment/observation) Fpc Memory Impairment none LTM Testing Methods recall of biographical information Intellectual Functioning roughly average Intellectual Functioning Assessed By fund of knowledge Insight fair and improving Insight Assessed By ability to recognize & acknowledge mental illness, ability to understand the implications of mental illness, understanding of treatment options and ability to comply with treatment Judgement fair and improving Judgement Assessed By exploring recent decision-making MMSE n/a Patient Assets able to perform ADLs, willing to accept treatment Patient Liabilities chronic pain, loneliness Assessment and Plan Clinical Impression/Diag Clinical Impression/Diagnosis F 33.1, progressing well. Continue IOP, monitor meds. Progress Overview Reason for Continued Services in an Intensive Outpatient Program continued impaired mood and.or depression, patient would decompenste at a lower level of care, not at baseline level of functioning and high risk for relapse Treatment To Be Provided medication management and group/individual/rec therapy Discharge Disposition/Level of Care PCP Anticipated Discharge 4-6 weeks
[2025-01-31 09:55] VITALS: BP 143/88; PULSE 88; RESP 20; TEMP 36.9; O2SAT 96
[2025-02-02 10:08] VITALS: BP 158/72; PULSE 82; RESP 20; TEMP 36.8; O2SAT 96
--- NOTE | 2025-02-07 13:47 | SLSTHERAPY ---
02/07/2025 Phone call received from Romana canceling 02/07/2025 group attendance due to illness; Romana is scheduled to return to group 02/09/2025.
--- NOTE | 2025-02-09 08:51 | PC.NURSE ---
The patient called and reported that she would not be at her scheduled session today due to her foot hurting.
--- NOTE | 2025-02-14 13:48 | SLSTHERAPY ---
Romana canceled group attendance for 02/14 & 02/16/2025 due to illness; reported being scheduled for foot surgery 02/17/2025; is scheduled to return to group 02/21/2025.
--- NOTE | 2025-02-21 08:22 | SLSTHERAPY ---
Phone call received from Romana canceling 02/21/25 group attendance due to post-surgery pain (toe amputation 02/16/25); Romana is scheduled to return to group & to consult with Dr. Hernandez 02/23/25.
--- NOTE | 2025-02-23 08:37 | PC.NURSE ---
The patient called and cancelled her scheduled session today and her doctor's appointment. She had foot surgery on 02/16 and is still recovering. She sees her orthopedic doctor on 02/27/2025.
[2025-02-28 10:23] VITALS: BP 143/78; PULSE 83; RESP 18; TEMP 36.9; O2SAT 97
[2025-03-02 10:00] VITALS: BP 142/84; PULSE 86; RESP 18; TEMP 36.8; O2SAT 96
--- NOTE | 2025-03-02 10:31 | PC.NURSE ---
No nursing group due to MD visit.
--- NOTE | 2025-03-02 13:15 | WPDSLSPROGRE ---
Progress HPI Progress HPI Visit Attended By patient and staff History Obtained From patient Patient Stated Chief Complaint depression HPI this is a routine follow-up for depression. Patient has not been seen for 5 weeks as she has had surgery on her toe. She says that the pain seems to finally be decreasing. Continues Paxil 40 mg q.a.m.. Enjoys the program participates well. Working on coping skills, anxiety reduction, among other topics Average Number of Hours of Sleep 10 Sleep Quality frequent awakening Change in PMFSH Releveant to Presenting Illness Yes Describe Changes in PMFSH recent surgery as above Review of Systems Review of Systems Constitutional Reports fatigue, generalized weakness and other (CKD) Eyes Reports WNL ENT Reports other (hearing loss) Respiratory Reports WNL Cardiovascular Reports other ( Hypertension, atrial fibrillation) Gastrointestinal Reports WNL Musculoskeletal Reports abnormal gait, Reports assistive device, Reports diminished strength, Reports muscle stiffness and Reports other ( chronic pain, recent toe surgery) Neurologic Reports other ( CVA x3, ataxia) Skin Reports bruising ADL's Reports WNL and Reports independent Exam Physical Exam Review of Lab Studies n/a Hygiene good General Behavior/Attitude Toward Examiner pleasant and cooperative Pain Yes Pain Location toe Pain Characteristics acute and throbbing Psychiatric Exam Level of Consciousness alert Orientation person, place, time and situation Speech normal rate/tone/volume/prosody and coherent Language able to comprehend questions Mood less depressed Affect full range, appropriate and congruent Thought Processes/Form logical, linear and goal directed Thought Content depressive symptoms Delusions none Homicidal/Assaultive Ideation none Suicidal Ideation none Hallucinations none Attention/Concentration focused Attention/Concentration Testing Methods observation/interview Short Term Memory Impairment none STM Testing Methods clinical interview (assessment/observation) Senior Living Memory Impairment none LTM Testing Methods recall of biographical information Intellectual Functioning roughly average Intellectual Functioning Assessed By fund of knowledge Insight fair and improving Insight Assessed By ability to recognize & acknowledge mental illness, ability to understand the implications of mental illness, understanding of treatment options and ability to comply with treatment Judgement fair and improving Judgement Assessed By exploring recent decision-making MMSE n/a Patient Assets able to perform ADLs, willing to accept treatment Patient Liabilities chronic pain, loneliness Assessment and Plan Clinical Impression/Diag Clinical Impression/Diagnosis F 33.1, progressing well. Continue IOP, monitor meds Progress Overview Reason for Continued Services in an Intensive Outpatient Program continued impaired mood and.or depression, patient would decompenste at a lower level of care, not at baseline level of functioning and high risk for relapse Treatment To Be Provided medication management and group/individual/rec therapy Discharge Disposition/Level of Care PCP Anticipated Discharge 4-6 weeks
[2025-03-07 10:06] VITALS: BP 138/80; PULSE 87; RESP 18; TEMP 37.1; O2SAT 96
--- NOTE | 2025-03-09 10:10 | PC.NURSE ---
No nursing group due to MD visit.
[2025-03-09 10:23] VITALS: BP 140/82; PULSE 88; RESP 18; TEMP 37; O2SAT 97
--- NOTE | 2025-03-13 08:55 | SLSTHERAPY ---
Phone call received from Romana garsia 03/13/2025 group attendance
--- NOTE | 2025-03-15 14:29 | SLSTHERAPY ---
Romana canceled 03/15/2025 group attendance.
--- NOTE | 2025-03-23 07:30 | SLSTHERAPY ---
Romana canceled group attendance for 03/21 & 03/23/2025.
--- NOTE | 2025-03-28 08:50 | SLSTHERAPY ---
Romana canceled group attendance for 03/28/2025.
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
== END 2025-03-30 14:14 | disposition home or self-care (01) ==
LOC: CHSSENLIFE 10:00
PROVIDERS: PCP Internal Medicine; Visit Provider Psychiatry & Neurology Psychiatry
DX: F33.1 Major depressive disorder, recurrent, moderate (principal)
CPT/HCPCS: 90792; 90853; 99213; G0463

== ENCOUNTER 2025-04-04 14:04 | Outpatient (CLI) | payer MEDICARE, SELFPAY ==
--- NOTE | ~2025-04-04 | XR_ITS ---
AP and lateral views of the right hip Clinical history: Pain Findings: No acute fracture or dislocation is seen. Osseous alignment is anatomic. Right hip joint is intact. Soft tissues are unremarkable. Impression: No significant abnormality is seen. Reviewed, dictated and finalized at location M. Impression: No significant abnormality is seen.
--- OUTSIDE RECORDS SUMMARY | 2025-04-04 14:14 | XMS_ITS | Clinical Summary ---
Author Organization [facility] Address [address] [place] [address] Phone Care Team Providers Care Machine Clothing Replacer Name Role Phone Unavailable Primary Care Provider [...]
--- OUTSIDE RECORDS SUMMARY | 2025-04-04 14:14 | XMS_ITS | Clinical Summary ---
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
== END 2025-04-04 14:05 | disposition home or self-care (01) ==
LOC: CHSIMG 14:08
PROVIDERS: PCP Internal Medicine; Visit Provider Internal Medicine
DX: M25.551 Pain in right hip (principal)
CPT/HCPCS: 73502

== ENCOUNTER 2025-06-16 12:39 | Outpatient (CLI) | payer MEDICARE, SELFPAY ==
--- OUTSIDE RECORDS SUMMARY | 2010-06-13 05:30 | XMS_ITS | Continuity of Care Document ---
Author Organization [facility] Address [address] [place] [address] [address] [place] [address] Phone Care Team Providers Care Supervisor Phosphoric Acid Name Role Phone Nabeel Cruz Unavailable Unavailable Procedures Procedure Date Office/outpatient Visit, Est Post-op Follow-up Visit Post-op Follow-up Visit Remove Cataract, Insert Lens PreOp Assessment Performed Office Consultation Script Printed/Phoned Pt Requ Or Pharm N ot Availab IOLMaster Advance Directives Directive Yes / No Effective Date File Name No Information Encounters Encounter Description Practice Location Reason(s) For Visit Diagnoses Date Provider Providers Copied on Encounter Office/outpat ient Visit, Est [facility], [address] [place], [place] [address], [place], [place], [id number], tel:[phone] SEC [facility] No Information 4-201 0 Anthony Lees. [facility] , [facility], [place], [address], [place]. tel:[phone] Referring Provider: Esperanza Kwong [facility] [address], [place], [address]. tel:[phone] [facility], [address] [place] [address] [address], [place], [place], [id number], tel:[phone] SEC [facility] Professional No Information 0 1-200 9 Krishnascurtis Sebastián. [address] [place], [place] [address], [facility], . tel:[phone] [facility], [address] [place] [address] [address], [place], [place], [id number], [place] tel:[phone] SEC [place] [facility] No Information May-2 5200 9 Janet Thomason. [address] [facility], [address], [place], [place], [id number], [place]. tel:[phone] [facility], [address], [place], [place], [id number], [place] tel:[phone] Paul[facility] No Information May- 9 Krishnasamy Sebastián. [address], [facility], . tel:[phone] Office Consultation [facility], [id number] [place] [address] [address], [place], [place], [id number], [place] tel:[phone] SEC [place] [facility] No Information Mar- 9 Krishnasamy Sebastián. [facility] access hospital[facility] [address], [facility], [place]. [phone] Family History Family Member Type Diagnosis Age At Onset No Information Payers Payer name Insurance type Covered alliance party ID Authorsusana cheyenne(s) [place] [id number] Social History Type Description Quantity Date Captured Comments Sex Female Smoking Status No Information Chief Complaint And Reason For Visit No Information Reason For Referral Reason For Referral No Information History Of Present Illness Encounter Date Complaint History Of Prese nt Illness No Information Functional Status Date Functional Assessmen t No Information Instructions Date Instruction Additional Infor mation No Information Assessments Type Assessment Date No Information Patient Care Teams Name Effective Dates (start - stop) Status Members No Information
--- NOTE | ~2025-06-16 | CT_ITS ---
EXAMINATION: CT hip RT wo con, CT hip LT wo con DATE: 06/16/2025 13:05 INDICATION: Bilateral hip pain and lumbar radiculopathy. TECHNIQUE: 1. High resolution computed tomography (CT) of the right hip was performed without intravenous contrast. Additional sagittal and coronal reconstructions were performed. Automated exposure control and iterative reconstruction technique were employed. The dose-length product was 255.35 mGy-cm. 2. CT of the left hip was performed without intravenous contrast. Additional sagittal and coronal reconstructions were performed. Automated exposure control and iterative reconstruction technique were employed. The dose-length product was 240.65 mGy-cm. COMPARISON: Hip and pelvis radiographs dated 08/18/2023 FINDINGS: Noncemented left total hip arthroplasty which remains in near-anatomic alignment with no periprosthetic lucency to suggest loosening or infection. No fracture or suspected osteonecrosis at the bilateral hips and visualized pelvis. Moderate osteoarthritis at the right hip. No hip joint effusion at either hip. Visualized musculature of the pelvis and proximal thighs appears normal and symmetric. No free fluid in the pelvis. The uterus is not identified and has likely been surgically resected. No pathologically enlarged pelvic or inguinal lymphadenopathy. IMPRESSION: 1. Moderate right hip osteoarthritis. No acute osseous abnormality. 2. Expected appearance of a left total hip arthroplasty. Reviewed, dictated and finalized at location A. IMPRESSION: 1. Moderate right hip osteoarthritis. No acute osseous abnormality. 2. Expected appearance of a left total hip arthroplasty.
--- NOTE | ~2025-06-16 | CT_ITS ---
EXAMINATION: CT lumbar spine wo con DATE: 06/16/2025 13:04 INDICATION: Lumbar radiculopathy. TECHNIQUE: Computed tomography (CT) of the lumbar spine was performed without intravenous contrast. Automated exposure control and iterative reconstruction technique were employed. The dose-length product was 580.22 mGy-cm. COMPARISON: None FINDINGS: There is 4 degrees levocurvature of thoracolumbar spine. There is mild chronic anterior wedging of T10 and T11 vertebral bodies. There is severely decreased disc height from T11-T12 through L4-L5 and mildly decreased disc height at L5-S1. The following disc levels are specifically discussed: L1-L2: The disc is bulging. There is severe right and moderate left facet joint osteoarthritis. There is mild bilateral neural foraminal stenosis. There is mild central canal stenosis. L2-L3: The disc is bulging. There is severe bilateral facet joint osteoarthritis. There is mild right and moderate left neural foraminal stenosis. There is mild central canal stenosis. L3-L4: The disc is bulging. There is severe bilateral facet joint osteoarthritis. There is mild bilateral neural foraminal stenosis. There is mild central canal stenosis. L4-L5: The disc is bulging. There is severe bilateral facet joint osteoarthritis. There is moderate bilateral neural foraminal stenosis. There is moderate central canal stenosis. L5-S1: The disc does not extend beyond the endplate margin. There is severe bilateral facet joint osteoarthritis. There is no neural foraminal stenosis. There is no central canal stenosis. IMPRESSION: 1. Severe lumbar spondylosis. Reviewed, dictated and finalized at location E.
--- OUTSIDE RECORDS SUMMARY | 2025-06-16 12:55 | XMS_ITS | Clinical Summary ---
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 02/27/2016 HTN (hypertension) 02/27/2016 Mixed hyperlipidemia 02/27/2016 [...] - 1-dose 75+ series) 2013 COVID-19 Vaccine (2023-2 5 season) 2025 Influenza Adult (#1) 2025 Hepatitis A Vaccines Aged Out No long er eligible based on patient's age to complete this topic Meningococcal B Vaccine Aged Out No l onger eligible based on patient's age to complete this topic Meningococcal Vaccine Aged Out No aric jony eligible based on patient's age to complete this topic RSV Immunizations Under 20 Months Aged Out No longer eligible based on patient's age to complete this topic Insurance GENERIC - COMMERCIAL on file MEDICARE Care Teams Drama Teacher Relationship Specialty Start Date End Date Michael Dowd MD [address] [place] [address] PCP - General INTERNAL MEDICINE 02/21/16 Brant Jerez MD [address] [place] [address] CARDIOVASCULAR DISEASE 02/21/16
--- OUTSIDE RECORDS SUMMARY | 2025-06-16 12:55 | XMS_ITS | Clinical Summary ---
Author Organization [facility] Address [address] [place] [address] Phone Care Team Providers Care Luncheonette Manager Name Role Phone Unavailable Primary Care Provider [...]
== END 2025-06-16 12:40 | disposition home or self-care (01) ==
LOC: CHSIMG 12:42
PROVIDERS: PCP Internal Medicine; Visit Provider Internal Medicine
DX: M25.552 Pain in left hip (principal); M25.551 Pain in right hip; M54.16 Radiculopathy, lumbar region; M16.11 Unilateral primary osteoarthritis, right hip; Z96.642 Presence of left artificial hip joint; M43.06 Spondylolysis, lumbar region
CPT/HCPCS: 72131; 73700